=== PATIENT | female | born 1930 | race Caucasian/White ===

== ENCOUNTER → 2017-12-02 | Outpatient (CLI) | payer MEDICARE, OTHER | END | disposition home or self-care (01) | LOC: RAD 11:09 | DX: M54.9 Dorsalgia, unspecified (principal); G95.19 Other vascular myelopathies | CPT/HCPCS: 72100 ==

== ENCOUNTER 2018-03-03 09:45 | Inpatient (IN) | payer MEDICARE, OTHER ==
[2018-03-03] MEDS: ONDANSETRON 4 MG INJ IV (12:21)
[2018-03-03] MEDS: HYDROmorphONE 1 MG/5 ML IV SYRINGE IV (12:22)
[2018-03-03 12:32] LABS: ADD MAN DIFF? NO
[2018-03-03 12:36] LABS: BASOPHIL # 0.1 10^3/ul (0.0-0.1); BASOPHILS % 0.6 % (0.0-2.0); EOSINOPHILS # 0.1 10^3/ul (0.0-0.5); EOSINOPHILS % 0.9 % (0.0-7.0); HEMOGLOBIN 13.1 g/dl (12.0-16.0); LYMPHOCYTES # 1.7 10^3/ul (0.8-2.9); LYMPHOCYTES % 14.8 % (15.0-51.0); MEAN CORPUSCULAR HEMOGLOBIN 26.5 pg (29.0-33.0); MEAN PLATELET VOLUME 10.2 fl (7.4-10.4); MONOCYTE # 0.4 10^3/ul (0.3-0.9); MONOCYTES % 3.7 % (0.0-11.0); NEUTROPHIL # 9.2 10^3/ul (1.6-7.5); NEUTROPHILS % 79.3 % (39.0-77.0); PLATELET COUNT 222 10^3/UL (140-415); RED BLOOD COUNT 4.94 10^6/ul (4.20-5.40); RED CELL DISTRIBUTION WIDTH 14.9 % (11.5-14.5)
[2018-03-03 12:36] LABS: WHITE BLOOD COUNT 11.6 10^3/ul (4.8-10.8)
[2018-03-03 12:57] LABS: ALANINE AMINOTRANSFERASE 34 IU/L (13-69); ALBUMIN 3.6 g/dl (3.3-4.9); ALKALINE PHOSPHATASE 126 IU/L (42-121); ANION GAP 18 (8-16); ASPARTATE AMINO TRANSFERASE 42 IU/L (15-46); BILIRUBIN,INDIRECT 0.6 mg/dl (0-1.1); BILIRUBIN,TOTAL 0.6 mg/dl (0.2-1.3); BLOOD UREA NITROGEN 15 mg/dl (7-20); CARBON DIOXIDE 30 mmol/L (21-31); CHLORIDE 104 mmol/L (97-110); CREATININE 0.85 mg/dl (0.44-1.00); GLUCOSE 174 mg/dl (70-220); INR 1.04; PARTIAL THROMBOPLASTIN TIME 30.8 Sec (25.0-35.0); POTASSIUM 4.3 mmol/L (3.5-5.1); PROTIME 13.7 Sec (11.9-14.9); PT RATIO 1.1; SODIUM 148 mmol/L (135-144)
[2018-03-03] MEDS ORDERED: ONDANSETRON 4 MG INJ IV (13:30)
[2018-03-03] MEDS ORDERED: ACETAMINOPHEN 325 MG TAB PO (13:30)
[2018-03-03] MEDS ORDERED: ALPRAZOLAM 0.25 MG TAB PO (14:00)
[2018-03-03] MEDS ORDERED: NITROGLYCERIN (SL) 0.4 MG TAB SL (14:00)
[2018-03-03] MEDS: [UNRECOGNIZED DRUG - REMARK] XX (16:13)
[2018-03-03] MEDS: CEFEPIME 1GM/50 ML (PMX) 50 ML IVPB (16:14)
[2018-03-03 16:52] LABS: ADD UMIC YES; UR ASCORBIC ACID NEGATIVE (NEGATIVE); UR BACTERIA FEW /HPF (NONE SEEN); UR BILIRUBIN (Dip) NEGATIVE (NEGATIVE); UR BLOOD (Dip) NEGATIVE (NEGATIVE); UR CLARITY SLIGHTLY CLOUDY (CLEAR); UR COLOR YELLOW (YELLOW); UR GLUCOSE (Dip) NEGATIVE (NEGATIVE); UR KETONES (Dip) NEGATIVE (NEGATIVE); UR LEUKOCYTE ESTERASE (Dip) TRACE Leu/ul (NEGATIVE); UR MUCUS FEW /HPF (NONE SEEN); UR NITRITE (Dip) NEGATIVE (NEGATIVE); UR RBC 0 /HPF (0-5); UR SPECIFIC GRAVITY (Dip) 1.014 (1.003-1.030); UR TOTAL PROTEIN (Dip) 1+ mg/dl (NEGATIVE); UR UROBILINOGEN (Dip) NEGATIVE (NEGATIVE); UR WBC 17 /HPF (0-5)
[2018-03-03] MEDS: HYDROCODONE/APAP (5/325) TAB PO ×2 (16:57→23:31)
[2018-03-03 17:25] LABS: HEMOGLOBIN A1C 8.2 % (0-5.9)
[2018-03-03] MEDS ORDERED: ENOXAPARIN 30 MG/0.3 ML SYG SC (17:30)
[2018-03-03 17:34] LABS: CREATININE,URINE RANDOM 110.62 mg/dl (20-320)
[2018-03-03 17:34] LABS: SODIUM,URINE RANDOM 53 mmol/L (30-90)
[2018-03-03] MEDS ORDERED: HYDROCODONE/APAP (5/325) TAB PO (18:00)
[2018-03-03] MEDS ORDERED: GLUCOSE GEL 15 GRAM TUBE PO ×2 (18:00)
[2018-03-03] MEDS ORDERED: GLUCOSE GEL 15 GRAM TUBE BUCCAL (18:00)
[2018-03-03] MEDS ORDERED: DEXTROSE 50% 50 ML SYRINGE IV ×2 (18:00)
[2018-03-03] MEDS ORDERED: GLUCAGON 1 MG INJ IM (18:00)
[2018-03-03] MEDS: INSULIN ASPART [NOVOLOG] 3 ML PEN SC ×2 (18:54→20:24)
[2018-03-03] MEDS: LACTULOSE 30ML CUP PO (20:20)
[2018-03-03] MEDS: GABAPENTIN 100 MG CAP PO (20:20)
[2018-03-03] MEDS: POTASSIUM CHLORIDE (SR) 20 MEQ TAB PO (20:20)
[2018-03-03] MEDS: INSULIN GLARGINE [LANtus] 3 ML PEN SC (21:00)
[2018-03-04] MEDS: PANTOPRAZOLE (EC) 40 MG TAB PO (05:08)
[2018-03-04] MEDS: INSULIN ASPART [NOVOLOG] 3 ML PEN SC ×2 (05:08→08:57)
[2018-03-04 05:21] LABS: ADD MAN DIFF? NO
[2018-03-04 05:25] LABS: BASOPHILS % 0.5 % (0.0-2.0); EOSINOPHILS # 0.1 10^3/ul (0.0-0.5); EOSINOPHILS % 2.2 % (0.0-7.0); HEMATOCRIT 33.7 % (37.0-47.0); HEMOGLOBIN 10.6 g/dl (12.0-16.0); MEAN CORPUSCULAR HEMOGLOBIN 26.7 pg (29.0-33.0); MEAN CORPUSCULAR HGB CONC 31.5 g/dl (32.0-37.0); MEAN CORPUSCULAR VOLUME 84.9 fl (82.0-101.0); MEAN PLATELET VOLUME 10.3 fl (7.4-10.4); MONOCYTE # 0.4 10^3/ul (0.3-0.9); MONOCYTES % 6.5 % (0.0-11.0); NEUTROPHIL # 3.4 10^3/ul (1.6-7.5); NEUTROPHILS % 57.5 % (39.0-77.0); PLATELET COUNT 158 10^3/UL (140-415); RED BLOOD COUNT 3.97 10^6/ul (4.20-5.40); RED CELL DISTRIBUTION WIDTH 14.9 % (11.5-14.5)
[2018-03-04 05:49] LABS: ANION GAP 9 (8-16); BLOOD UREA NITROGEN 20 mg/dl (7-20); CALCIUM 9.1 mg/dl (8.4-10.2); CARBON DIOXIDE 30 mmol/L (21-31); CHLORIDE 109 mmol/L (97-110); CREATININE 0.89 mg/dl (0.44-1.00); GLUCOSE 211 mg/dl (70-220); PHOSPHORUS 3.8 mg/dl (2.5-4.9); SODIUM 143 mmol/L (135-144)
[2018-03-04] MEDS ORDERED: NON-FORMULARY/PATIENT OWN MED (Omeprazole* 20 MG) PO (07:00)
[2018-03-04] MEDS: AMLODIPINE 10 MG TAB PO (08:44)
[2018-03-04] MEDS: BENAZEPRIL 10 MG TAB PO (08:45)
[2018-03-04] MEDS: CHOLECALCIFEROL 1,000 UNIT TAB PO (08:46)
[2018-03-04] MEDS: GABAPENTIN 100 MG CAP PO ×3 (08:46→20:27)
[2018-03-04] MEDS: METOLAZONE 2.5 MG TAB PO (08:46)
[2018-03-04] MEDS: DULOXETINE 30 MG CAP DR PO (08:47)
[2018-03-04] MEDS: FUROSEMIDE 40 MG TAB PO (08:47)
[2018-03-04] MEDS: LACTULOSE 30ML CUP PO ×3 (08:47→20:38)
[2018-03-04] MEDS: METHENAMINE 1 GM TAB PO (08:47)
[2018-03-04] MEDS: POTASSIUM CHLORIDE (SR) 20 MEQ TAB PO ×2 (08:47→20:27)
[2018-03-04] MEDS: NEBIVOLOL 5 MG TAB PO (08:50)
[2018-03-04] MEDS: ASPIRIN 81 MG TAB PO (08:57)
[2018-03-04] MEDS ORDERED: NEBIVOLOL 5 MG TAB PO (09:00)
[2018-03-04] MEDS ORDERED: LIRAGLUTIDE 1.8 MG SQ (09:00)
[2018-03-04] MEDS: DEXTROSE 5%-0.45% NACL 1,000 ML IV (09:07)
[2018-03-04] MEDS: LINAGLIPTIN 5 MG TABLET PO (10:30)
[2018-03-04] MEDS ORDERED: ROCURONIUM 50 MG INJ (10:48)
[2018-03-04] MEDS ORDERED: PROPOFOL 20 ML (10:48)
[2018-03-04] MEDS ORDERED: MEPERIDINE 100 MG INJ (10:48)
[2018-03-04] MEDS ORDERED: SUCCINYLCHOLINE CHLORIDE 100 MG/5 ML SYG IV (10:48)
[2018-03-04] MEDS ORDERED: GLYCOPYRROLATE 0.4 MG INJ ×2 (10:48→11:22)
[2018-03-04] MEDS ORDERED: LIDOCAINE 2% (SDV) 5 ML INJ (10:48)
[2018-03-04] MEDS ORDERED: NEOSTIGMINE 3 MG/3 ML SYRINGE ×2 (10:48→11:22)
[2018-03-04] MEDS: CEFAZOLIN 2 GM/50 ML (PMX) 50 ML IVPB (11:07)
[2018-03-04] MEDS: POLYMYXIN/BACITRACIN 1L IRRIG IRR (11:27)
[2018-03-04] MEDS ORDERED: MEPERIDINE 25 MG INJ IV (11:30)
[2018-03-04] MEDS ORDERED: MIDAZOLAM 1 MG/ML 2 ML INJ IV (11:30)
[2018-03-04] MEDS ORDERED: LABETALOL HCL 20MG INJ IV (11:30)
[2018-03-04] MEDS ORDERED: FENTAnyl 50 MCG/ML VIAL IV ×3 (11:30)
[2018-03-04] MEDS ORDERED: OXYCODONE/ACETAMINOPHEN (5/325) TAB PO ×2 (11:30)
[2018-03-04] MEDS ORDERED: hydrALAzine 20 MG INJ IV (11:30)
[2018-03-04] MEDS ORDERED: METOCLOPRAMIDE 10 MG INJ IV (11:30)
[2018-03-04] MEDS ORDERED: EPHEDrine SULFATE 50 MG/5 ML SYG IV (11:30)
[2018-03-04] MEDS ORDERED: HYDROmorphONE (0.2 MG/ML) 10ML SYG IV ×2 (11:30)
[2018-03-04] MEDS ORDERED: ONDANSETRON 4 MG INJ IV (11:30)
[2018-03-04] MEDS ORDERED: DIPHENHYDRAMINE 50 MG INJ IV ×2 (11:30→12:00)
[2018-03-04] MEDS: LUBIPROSTONE 8 MCG CAPSULE PO ×2 (11:30→20:30)
[2018-03-04] MEDS ORDERED: BACITRACIN/POLYMYXIN 28.35 GM OINT TOP (11:41)
[2018-03-04] MEDS ORDERED: CEFAZOLIN 1 GM INJ (11:42)
[2018-03-04] MEDS ORDERED: METOCLOPRAMIDE 10 MG INJ (11:42)
[2018-03-04] MEDS ORDERED: ONDANSETRON 4 MG INJ (11:42)
[2018-03-04] MEDS ORDERED: SUGAMMADEX SODIUM 200 MG/2 ML VIAL IV (11:57)
[2018-03-04] MEDS ORDERED: MAGNESIUM HYDROXIDE 30ML CUP PO (12:00)
[2018-03-04] MEDS ORDERED: NALOXONE (0.4 MG/ML) INJ IV (12:00)
[2018-03-04] MEDS: CEFAZOLIN 1 GM/50 ML (PMX) 50 ML IVPB ×2 (12:00→20:25)
[2018-03-04] MEDS ORDERED: BISACODYL 10 MG SUPP PR (12:00)
[2018-03-04] MEDS ORDERED: BETHANECHOL 25 MG TAB PO (12:00)
[2018-03-04] MEDS ORDERED: oxyCODONE 5 MG TAB PO (12:00)
[2018-03-04] MEDS ORDERED: NA PHOSPHATE/BIPHOS 133 ML ENEMA PR (12:00)
[2018-03-04] MEDS ORDERED: TRIMETHOBENZAMIDE 100 MG/ML VIAL IM (12:00)
[2018-03-04] MEDS ORDERED: SENNA/DOCUSATE NA (8.6MG/50MG) TAB PO (12:00)
[2018-03-04] MEDS: HYDROmorphONE (0.2 MG/ML) 10ML SYG IV ×3 (12:34→13:15)
[2018-03-04] MEDS: ONDANSETRON 4 MG INJ IV ×3 (12:36→23:26)
[2018-03-04] MEDS: DOCUSATE SODIUM 100 MG CAP PO (12:36)
[2018-03-04] MEDS: ASPIRIN (EC) 325 MG TAB PO ×2 (12:36→20:27)
[2018-03-04] MEDS: CALCIUM CARBONATE 1.25 GM TAB PO ×2 (13:00→20:27)
[2018-03-04] MEDS ORDERED: POLYMYXIN/BACITRACIN 1L IRRIG (13:02)
[2018-03-04] MEDS: SOD CHLORIDE 0.9% 1,000 ML IV ×2 (14:03→23:32)
[2018-03-04] MEDS: HYDROCODONE/APAP (5/325) TAB PO ×2 (15:08→23:26)
[2018-03-04] MEDS: CEFEPIME 1GM/50 ML (PMX) 50 ML IVPB (15:52)
[2018-03-04] MEDS ORDERED: INSULIN ASPART [NOVOLOG] 3 ML PEN SC (17:25)
[2018-03-04] MEDS: Insulin NOVOLOG SS MODERATE Algorithm (SS with meals and bedtime) SC ×2 (18:06→20:49)
[2018-03-04] MEDS: TOLTERODINE (SR) 2 MG CAP PO (20:27)
[2018-03-04] MEDS: INSULIN GLARGINE [LANtus] 3 ML PEN SC (20:48)
[2018-03-05] MEDS: ACCUCHECK AT 2AM (Patients on SS coverage) XX (02:46)
[2018-03-05] MEDS: CEFAZOLIN 1 GM/50 ML (PMX) 50 ML IVPB (04:22)
[2018-03-05 05:17] LABS: ADD MAN DIFF? NO
[2018-03-05 05:23] LABS: BASOPHILS % 0.6 % (0.0-2.0); EOSINOPHILS # 0.2 10^3/ul (0.0-0.5); EOSINOPHILS % 3.2 % (0.0-7.0); HEMATOCRIT 29.3 % (37.0-47.0); HEMOGLOBIN 9.4 g/dl (12.0-16.0); LYMPHOCYTES % 31.1 % (15.0-51.0); MEAN CORPUSCULAR HEMOGLOBIN 27.1 pg (29.0-33.0); MEAN CORPUSCULAR HGB CONC 32.1 g/dl (32.0-37.0); MEAN CORPUSCULAR VOLUME 84.4 fl (82.0-101.0); MEAN PLATELET VOLUME 10.2 fl (7.4-10.4); MONOCYTE # 0.5 10^3/ul (0.3-0.9); MONOCYTES % 6.9 % (0.0-11.0); NEUTROPHIL # 3.8 10^3/ul (1.6-7.5); NEUTROPHILS % 57.7 % (39.0-77.0); PLATELET COUNT 143 10^3/UL (140-415); RED BLOOD COUNT 3.47 10^6/ul (4.20-5.40); RED CELL DISTRIBUTION WIDTH 15.5 % (11.5-14.5)
[2018-03-05 05:23] LABS: WHITE BLOOD COUNT 6.5 10^3/ul (4.8-10.8)
[2018-03-05 05:59] LABS: ANION GAP 11 (8-16); BLOOD UREA NITROGEN 21 mg/dl (7-20); CALCIUM 8.4 mg/dl (8.4-10.2); CARBON DIOXIDE 26 mmol/L (21-31); CHLORIDE 109 mmol/L (97-110); CREATININE 0.94 mg/dl (0.44-1.00); GLUCOSE 118 mg/dl (70-220); MAGNESIUM 1.9 mg/dl (1.7-2.5); PHOSPHORUS 3.1 mg/dl (2.5-4.9); POTASSIUM 4.8 mmol/L (3.5-5.1); SODIUM 141 mmol/L (135-144)
[2018-03-05] MEDS: PANTOPRAZOLE (EC) 40 MG TAB PO ×2 (06:00→06:12)
[2018-03-05] MEDS: ONDANSETRON 4 MG INJ IV (06:13)
[2018-03-05 07:35] LABS: ADD UMIC YES; UR ASCORBIC ACID NEGATIVE (NEGATIVE); UR BACTERIA FEW /HPF (NONE SEEN); UR BILIRUBIN (Dip) NEGATIVE (NEGATIVE); UR BLOOD (Dip) 1+ mg/dL (NEGATIVE); UR CLARITY CLEAR (CLEAR); UR COLOR YELLOW (YELLOW); UR GLUCOSE (Dip) NEGATIVE (NEGATIVE); UR KETONES (Dip) NEGATIVE (NEGATIVE); UR LEUKOCYTE ESTERASE (Dip) 1+ Leu/ul (NEGATIVE); UR NITRITE (Dip) NEGATIVE (NEGATIVE); UR RBC 7 /HPF (0-5); UR TOTAL PROTEIN (Dip) 1+ mg/dl (NEGATIVE); UR UROBILINOGEN (Dip) NEGATIVE (NEGATIVE); UR WBC 17 /HPF (0-5)
[2018-03-05] MEDS: Insulin NOVOLOG SS MODERATE Algorithm (SS with meals and bedtime) SC ×4 (07:50→21:48)
[2018-03-05] MEDS: DOCUSATE SODIUM 100 MG CAP PO ×2 (09:05→21:54)
[2018-03-05] MEDS: CELECOXIB 200 MG CAP PO ×2 (09:06→21:50)
[2018-03-05] MEDS: FERROUS FUMARATE (SR) TAB PO ×2 (09:06→21:50)
[2018-03-05] MEDS: LINAGLIPTIN 5 MG TABLET PO (09:06)
[2018-03-05] MEDS: CALCIUM CARBONATE 1.25 GM TAB PO ×3 (09:06→21:49)
[2018-03-05] MEDS: ASPIRIN 81 MG TAB PO (09:06)
[2018-03-05] MEDS: CHOLECALCIFEROL 1,000 UNIT TAB PO (09:07)
[2018-03-05] MEDS: LUBIPROSTONE 8 MCG CAPSULE PO ×2 (09:07→21:54)
[2018-03-05] MEDS: METHENAMINE 1 GM TAB PO (09:08)
[2018-03-05] MEDS: FUROSEMIDE 40 MG TAB PO (09:08)
[2018-03-05] MEDS: METOLAZONE 2.5 MG TAB PO (09:08)
[2018-03-05] MEDS: GABAPENTIN 100 MG CAP PO ×3 (09:09→21:49)
[2018-03-05] MEDS: NEBIVOLOL 5 MG TAB PO (09:09)
[2018-03-05] MEDS: ASPIRIN (EC) 325 MG TAB PO ×2 (09:09→21:50)
[2018-03-05] MEDS: POTASSIUM CHLORIDE (SR) 20 MEQ TAB PO ×2 (09:09→21:51)
[2018-03-05] MEDS: DULOXETINE 30 MG CAP DR PO (09:09)
[2018-03-05] MEDS: LACTULOSE 30ML CUP PO ×4 (09:14→21:55)
[2018-03-05] MEDS ORDERED: CEFTRIAXONE 2 GM/50 ML (PMX) 50 ML IVPB (13:30)
[2018-03-05] MEDS: BENAZEPRIL 10 MG TAB PO (15:19)
[2018-03-05] MEDS: AMLODIPINE 10 MG TAB PO (15:19)
[2018-03-05] MEDS: HYDROCODONE/APAP (5/325) TAB PO (15:22)
[2018-03-05 15:23] LABS: CREATININE, RANDOM URINE 128 mg/dL (20-320); MICROALBUMIN 18.2 mg/dL; MICROALBUMIN/CREATININE RATIO 142 (<30)
[2018-03-05] MEDS ORDERED: LACTULOSE 30ML CUP PO (17:30)
[2018-03-05] MEDS: CEFEPIME 1GM/50 ML (PMX) 50 ML IVPB (18:24)
[2018-03-05] MEDS: SOD CHLORIDE 0.9% 1,000 ML IV (20:43)
[2018-03-05] MEDS: TOLTERODINE (SR) 2 MG CAP PO (21:50)
[2018-03-05] MEDS: INSULIN GLARGINE [LANtus] 3 ML PEN SC (21:53)
[2018-03-06] MEDS: ACCUCHECK AT 2AM (Patients on SS coverage) XX (02:00)
[2018-03-06] MEDS: HYDROCODONE/APAP (5/325) TAB PO ×3 (03:32→15:15)
[2018-03-06] MEDS: PANTOPRAZOLE (EC) 40 MG TAB PO ×2 (06:00→06:09)
[2018-03-06] MEDS: Insulin NOVOLOG SS MODERATE Algorithm (SS with meals and bedtime) SC ×4 (07:50→20:13)
[2018-03-06] MEDS: DOCUSATE SODIUM 100 MG CAP PO ×2 (09:14→20:00)
[2018-03-06] MEDS: FERROUS FUMARATE (SR) TAB PO ×2 (09:14→19:59)
[2018-03-06] MEDS: CELECOXIB 200 MG CAP PO ×2 (09:14→20:00)
[2018-03-06] MEDS: GABAPENTIN 100 MG CAP PO ×3 (09:14→19:59)
[2018-03-06] MEDS: ASPIRIN (EC) 325 MG TAB PO ×2 (09:15→19:59)
[2018-03-06] MEDS: CHOLECALCIFEROL 1,000 UNIT TAB PO (09:15)
[2018-03-06] MEDS: CALCIUM CARBONATE 1.25 GM TAB PO ×3 (09:15→19:59)
[2018-03-06] MEDS: DULOXETINE 30 MG CAP DR PO (09:15)
[2018-03-06] MEDS: AMLODIPINE 10 MG TAB PO (09:16)
[2018-03-06] MEDS: LINAGLIPTIN 5 MG TABLET PO (09:16)
[2018-03-06] MEDS: ASPIRIN 81 MG TAB PO (09:16)
[2018-03-06] MEDS: BENAZEPRIL 10 MG TAB PO (09:17)
[2018-03-06] MEDS: FUROSEMIDE 40 MG TAB PO (09:17)
[2018-03-06] MEDS: NEBIVOLOL 5 MG TAB PO (09:17)
[2018-03-06] MEDS: METOLAZONE 2.5 MG TAB PO (09:18)
[2018-03-06] MEDS: METHENAMINE 1 GM TAB PO (09:18)
[2018-03-06] MEDS: POTASSIUM CHLORIDE (SR) 20 MEQ TAB PO ×2 (09:22→19:59)
[2018-03-06] MEDS: LACTULOSE 30ML CUP PO ×3 (09:23→20:00)
[2018-03-06] MEDS ORDERED: ENOXAPARIN 40 MG/0.4 ML SYG SC (09:30)
[2018-03-06] MEDS: LUBIPROSTONE 24 MCG CAP PO ×2 (09:56→18:14)
[2018-03-06] MEDS: ENOXAPARIN 30 MG/0.3 ML SYG SC (11:48)
[2018-03-06] MEDS: CEFEPIME 1GM/50 ML (PMX) 50 ML IVPB (15:16)
[2018-03-06] MEDS: TOLTERODINE (SR) 2 MG CAP PO (19:59)
[2018-03-06] MEDS: INSULIN GLARGINE [LANtus] 3 ML PEN SC (20:10)
[2018-03-07] MEDS: ACCUCHECK AT 2AM (Patients on SS coverage) XX (02:00)
[2018-03-07 05:49] LABS: ADD MAN DIFF? NO
[2018-03-07 05:54] LABS: WHITE BLOOD COUNT 7.7 10^3/ul (4.8-10.8)
[2018-03-07 05:54] LABS: BASOPHILS % 0.5 % (0.0-2.0); EOSINOPHILS # 0.2 10^3/ul (0.0-0.5); EOSINOPHILS % 3.1 % (0.0-7.0); HEMOGLOBIN 8.3 g/dl (12.0-16.0); LYMPHOCYTES # 2.1 10^3/ul (0.8-2.9); MEAN CORPUSCULAR HEMOGLOBIN 27.1 pg (29.0-33.0); MEAN CORPUSCULAR HGB CONC 31.9 g/dl (32.0-37.0); MEAN PLATELET VOLUME 10.6 fl (7.4-10.4); MONOCYTE # 0.8 10^3/ul (0.3-0.9); MONOCYTES % 10.9 % (0.0-11.0); NEUTROPHIL # 4.4 10^3/ul (1.6-7.5); NEUTROPHILS % 57.5 % (39.0-77.0); PLATELET COUNT 169 10^3/UL (140-415); RED BLOOD COUNT 3.06 10^6/ul (4.20-5.40); RED CELL DISTRIBUTION WIDTH 15.9 % (11.5-14.5)
[2018-03-07] MEDS: PANTOPRAZOLE (EC) 40 MG TAB PO ×2 (06:56→06:57)
[2018-03-07] MEDS: Insulin NOVOLOG SS MODERATE Algorithm (SS with meals and bedtime) SC ×4 (07:50→21:35)
[2018-03-07 08:59] LABS: ANION GAP 12 (8-16); BLOOD UREA NITROGEN 29 mg/dl (7-20); CALCIUM 8.3 mg/dl (8.4-10.2); CARBON DIOXIDE 23 mmol/L (21-31); CHLORIDE 110 mmol/L (97-110); CREATININE 1.21 mg/dl (0.44-1.00); GLUCOSE 105 mg/dl (70-220); PHOSPHORUS 1.9 mg/dl (2.5-4.9); SODIUM 138 mmol/L (135-144)
[2018-03-07] MEDS: POTASSIUM CHLORIDE (SR) 20 MEQ TAB PO (09:00)
[2018-03-07 09:11] LABS: POTASSIUM 6.9 mmol/L (3.5-5.1)
[2018-03-07] MEDS: CHOLECALCIFEROL 1,000 UNIT TAB PO (09:40)
[2018-03-07] MEDS: METHENAMINE 1 GM TAB PO (09:40)
[2018-03-07] MEDS: AMLODIPINE 10 MG TAB PO (09:40)
[2018-03-07] MEDS: LUBIPROSTONE 24 MCG CAP PO ×2 (09:40→18:08)
[2018-03-07] MEDS: GABAPENTIN 100 MG CAP PO ×3 (09:41→21:19)
[2018-03-07] MEDS: BENAZEPRIL 10 MG TAB PO (09:41)
[2018-03-07] MEDS: FUROSEMIDE 40 MG TAB PO (09:41)
[2018-03-07] MEDS: METOLAZONE 2.5 MG TAB PO (09:41)
[2018-03-07] MEDS: CELECOXIB 200 MG CAP PO ×2 (09:41→21:19)
[2018-03-07] MEDS: DULOXETINE 30 MG CAP DR PO (09:41)
[2018-03-07] MEDS: LACTULOSE 30ML CUP PO ×3 (09:42→21:19)
[2018-03-07] MEDS: ASPIRIN (EC) 325 MG TAB PO ×2 (09:42→21:19)
[2018-03-07] MEDS: NEBIVOLOL 5 MG TAB PO (09:42)
[2018-03-07] MEDS: DOCUSATE SODIUM 100 MG CAP PO ×2 (09:42→21:19)
[2018-03-07] MEDS: CALCIUM CARBONATE 1.25 GM TAB PO ×3 (09:42→21:19)
[2018-03-07] MEDS: FERROUS FUMARATE (SR) TAB PO ×2 (09:43→21:19)
[2018-03-07] MEDS: LINAGLIPTIN 5 MG TABLET PO (09:43)
[2018-03-07] MEDS: ENOXAPARIN 30 MG/0.3 ML SYG SC (09:46)
[2018-03-07 13:41] LABS: ANION GAP 11 (8-16); BLOOD UREA NITROGEN 29 mg/dl (7-20); CALCIUM 8.4 mg/dl (8.4-10.2); CARBON DIOXIDE 23 mmol/L (21-31); CHLORIDE 108 mmol/L (97-110); GLUCOSE 196 mg/dl (70-220); SODIUM 136 mmol/L (135-144)
[2018-03-07] MEDS: NA POLYST SULFON 15 GM/60 ML BTL PO (14:45)
[2018-03-07] MEDS: CEFEPIME 1GM/50 ML (PMX) 50 ML IVPB (14:45)
[2018-03-07] MEDS: FUROSEMIDE 20 MG INJ IV (14:45)
[2018-03-07] MEDS ORDERED: VITAMIN A & D 5 GM OINT PACKET TOP (15:13)
[2018-03-07] MEDS: TOLTERODINE (SR) 2 MG CAP PO (21:19)
[2018-03-07] MEDS: INSULIN GLARGINE [LANtus] 3 ML PEN SC (21:21)
[2018-03-07] MEDS: HYDROCODONE/APAP (5/325) TAB PO (21:35)
[2018-03-08] MEDS: HYDROCODONE/APAP (10/325) TAB PO (01:16)
[2018-03-08] MEDS: ACCUCHECK AT 2AM (Patients on SS coverage) XX (02:00)
[2018-03-08 05:59] LABS: ALANINE AMINOTRANSFERASE 18 IU/L (13-69); ALBUMIN 2.4 g/dl (3.3-4.9); ALBUMIN/GLOBULIN RATIO 0.68; ALKALINE PHOSPHATASE 102 IU/L (42-121); ANION GAP 11 (8-16); ASPARTATE AMINO TRANSFERASE 23 IU/L (15-46); BILIRUBIN,INDIRECT 0.4 mg/dl (0-1.1); BILIRUBIN,TOTAL 0.4 mg/dl (0.2-1.3); BLOOD UREA NITROGEN 29 mg/dl (7-20); CALCIUM 9.1 mg/dl (8.4-10.2); CARBON DIOXIDE 27 mmol/L (21-31); CHLORIDE 110 mmol/L (97-110); CREATININE 1.18 mg/dl (0.44-1.00); GLUCOSE 136 mg/dl (70-220); POTASSIUM 4.1 mmol/L (3.5-5.1); SODIUM 144 mmol/L (135-144); TOTAL PROTEIN 5.9 g/dl (6.1-8.1)
[2018-03-08] MEDS: PANTOPRAZOLE (EC) 40 MG TAB PO (07:05)
[2018-03-08] MEDS: Insulin NOVOLOG SS MODERATE Algorithm (SS with meals and bedtime) SC ×2 (07:50→11:40)
[2018-03-08] MEDS: LUBIPROSTONE 24 MCG CAP PO (07:50)
[2018-03-08] MEDS: NEBIVOLOL 5 MG TAB PO (08:32)
[2018-03-08] MEDS: METOLAZONE 2.5 MG TAB PO (08:32)
[2018-03-08] MEDS: METHENAMINE 1 GM TAB PO (08:32)
[2018-03-08] MEDS: DULOXETINE 30 MG CAP DR PO (08:33)
[2018-03-08] MEDS: CELECOXIB 200 MG CAP PO (08:33)
[2018-03-08] MEDS: FERROUS FUMARATE (SR) TAB PO (08:33)
[2018-03-08] MEDS: FUROSEMIDE 40 MG TAB PO (08:33)
[2018-03-08] MEDS: LINAGLIPTIN 5 MG TABLET PO (08:33)
[2018-03-08] MEDS: CHOLECALCIFEROL 1,000 UNIT TAB PO (08:33)
[2018-03-08] MEDS: GABAPENTIN 100 MG CAP PO ×2 (08:33→12:36)
[2018-03-08] MEDS: CALCIUM CARBONATE 1.25 GM TAB PO ×2 (08:34→12:37)
[2018-03-08] MEDS: AMLODIPINE 10 MG TAB PO (08:34)
[2018-03-08] MEDS: ASPIRIN (EC) 325 MG TAB PO (08:34)
[2018-03-08] MEDS: LACTULOSE 30ML CUP PO ×2 (08:45→12:36)
[2018-03-08] MEDS: ENOXAPARIN 30 MG/0.3 ML SYG SC (08:47)
== END 2018-03-08 17:00 | DRG 481 ==
LOC: MS1 03-04 05:02 → E/R 09:45 → MS1 13:11
PROC: 0QS704Z Reposition Left Upper Femur with Internal Fixation Device, Open Approach (ICD-10-PCS; principal; 2018-03-04 10:30)
DX: S72.142A Displaced intertrochanteric fracture of left femur, initial encounter for closed fracture (principal); N39.0 Urinary tract infection, site not specified; E87.0 Hyperosmolality and hypernatremia; I12.9 Hypertensive chronic kidney disease with stage 1 through stage 4 chronic kidney disease, or unspecified chronic kidney disease; E11.22 Type 2 diabetes mellitus with diabetic chronic kidney disease; N18.9 Chronic kidney disease, unspecified; E66.01 Morbid (severe) obesity due to excess calories; Z68.37 Body mass index [BMI] 37.0-37.9, adult; G62.9 Polyneuropathy, unspecified; E87.5 Hyperkalemia; I87.2 Venous insufficiency (chronic) (peripheral); F03.90 Unspecified dementia, unspecified severity, without behavioral disturbance, psychotic disturbance, mood disturbance, and anxiety; K74.60 Unspecified cirrhosis of liver; E78.5 Hyperlipidemia, unspecified
CPT/HCPCS: 71045; 73500; 73510; 73530; 80048; 80053; 80076; 81001; 81003; 82043; 82962; 83036; 83735; 84100; 84155; 84300; 85025; 85610; 85730; 86850; 86900; 86901; 87086; 93005; 93306; 96365; 96375; 97110; 97162; 97165; 97530; 99285-25

== ENCOUNTER 2018-03-16 13:14 | Inpatient (IN) | payer MEDICARE, OTHER ==
[2018-03-16 14:49] LABS: ADD MAN DIFF? NO
[2018-03-16 14:50] LABS: WHITE BLOOD COUNT 6.1 10^3/ul (4.8-10.8)
[2018-03-16 14:50] LABS: BASOPHIL # 0.1 10^3/ul (0.0-0.1); EOSINOPHILS # 0.2 10^3/ul (0.0-0.5); EOSINOPHILS % 3.8 % (0.0-7.0); HEMATOCRIT 34.3 % (37.0-47.0); HEMOGLOBIN 10.9 g/dl (12.0-16.0); MEAN CORPUSCULAR HEMOGLOBIN 27.8 pg (29.0-33.0); MEAN CORPUSCULAR HGB CONC 31.8 g/dl (32.0-37.0); MEAN CORPUSCULAR VOLUME 87.5 fl (82.0-101.0); MEAN PLATELET VOLUME 9.7 fl (7.4-10.4); MONOCYTE # 0.5 10^3/ul (0.3-0.9); MONOCYTES % 8.5 % (0.0-11.0); NEUTROPHIL # 3.3 10^3/ul (1.6-7.5); PLATELET COUNT 227 10^3/UL (140-415); RED BLOOD COUNT 3.92 10^6/ul (4.20-5.40); RED CELL DISTRIBUTION WIDTH 17.6 % (11.5-14.5)
[2018-03-16 15:08] LABS: LACTIC ACID 1.9 mmol/L (0.5-2.0)
[2018-03-16 15:09] LABS: ALANINE AMINOTRANSFERASE 16 IU/L (13-69); ALBUMIN 3.3 g/dl (3.3-4.9); ALBUMIN/GLOBULIN RATIO 0.76; ALKALINE PHOSPHATASE 135 IU/L (42-121); ANION GAP 12 (8-16); ASPARTATE AMINO TRANSFERASE 27 IU/L (15-46); BILIRUBIN,INDIRECT 0.9 mg/dl (0-1.1); BILIRUBIN,TOTAL 0.9 mg/dl (0.2-1.3); BLOOD UREA NITROGEN 43 mg/dl (7-20); CALCIUM 11.5 mg/dl (8.4-10.2); CARBON DIOXIDE 39 mmol/L (21-31); CHLORIDE 91 mmol/L (97-110); CREATININE 1.03 mg/dl (0.44-1.00); GLUCOSE 196 mg/dl (70-220); POTASSIUM 3.6 mmol/L (3.5-5.1); SODIUM 138 mmol/L (135-144); TOTAL PROTEIN 7.6 g/dl (6.1-8.1)
[2018-03-16 15:21] LABS: TROPONIN-I < 0.012 ng/ml (0.00-0.12)
[2018-03-16 15:22] LABS: INR 0.99; PARTIAL THROMBOPLASTIN TIME 25.8 Sec (25.0-35.0); PROTIME 13.2 Sec (11.9-14.9)
[2018-03-16 15:25] LABS: ADD UMIC YES; UR ASCORBIC ACID NEGATIVE (NEGATIVE); UR BACTERIA MANY /HPF (NONE SEEN); UR BILIRUBIN (Dip) NEGATIVE (NEGATIVE); UR BLOOD (Dip) 1+ mg/dL (NEGATIVE); UR BUDDING YEAST FEW /HPF (NONE SEEN); UR CLARITY CLOUDY (CLEAR); UR COLOR YELLOW (YELLOW); UR GLUCOSE (Dip) NEGATIVE (NEGATIVE); UR HYALINE CAST FEW /HPF (NONE SEEN); UR KETONES (Dip) NEGATIVE (NEGATIVE); UR LEUKOCYTE ESTERASE (Dip) 3+ Leu/ul (NEGATIVE); UR NITRITE (Dip) NEGATIVE (NEGATIVE); UR RBC 8 /HPF (0-5); UR SPECIFIC GRAVITY (Dip) 1.011 (1.003-1.030); UR TOTAL PROTEIN (Dip) NEGATIVE (NEGATIVE); UR UROBILINOGEN (Dip) NEGATIVE (NEGATIVE); UR WBC > 182 /HPF (0-5)
[2018-03-16] MEDS: PIPER-TAZO 3.375 GM IV (PMX) 100 ML IVPB (16:29)
[2018-03-16] MEDS: SOD CHLORIDE 0.9% 500 ML IV (16:29)
[2018-03-16 18:54] LABS: LACTIC ACID 1.7 mmol/L (0.5-2.0)
[2018-03-16] MEDS ORDERED: INSULIN ASPART [NOVOLOG] 3 ML PEN SC (20:30)
[2018-03-16] MEDS ORDERED: HYDROCODONE/APAP (5/325) TAB PO (20:30)
[2018-03-16] MEDS ORDERED: NITROGLYCERIN (SL) 0.4 MG TAB SL (20:30)
[2018-03-16] MEDS ORDERED: BISACODYL 10 MG SUPP PR (20:30)
[2018-03-16] MEDS ORDERED: AMLODIPINE 10 MG TAB PO (20:30)
[2018-03-16] MEDS ORDERED: CHOLECALCIFEROL 1,000 UNIT TAB PO (20:30)
[2018-03-16] MEDS ORDERED: ALPRAZOLAM 0.25 MG TAB PO (20:30)
[2018-03-16] MEDS ORDERED: ASPIRIN 81 MG TAB PO (20:30)
[2018-03-16] MEDS: SOD CHLORIDE 0.9% 1,000 ML IV (20:41)
[2018-03-16] MEDS: INSULIN ASPART [NOVOLOG] 3 ML PEN SC (21:00)
[2018-03-16] MEDS ORDERED: INSULIN DEGLUDEC SQ (21:00)
[2018-03-16] MEDS: LACTULOSE 30ML CUP PO ×2 (21:00)
[2018-03-16] MEDS: CEFTRIAXONE 1 GM/50 ML (PMX) 50 ML IVPB (21:32)
[2018-03-16] MEDS: GABAPENTIN 100 MG CAP PO (21:32)
[2018-03-16] MEDS: CALCIUM/VITAMIN D (500/200) TAB PO (21:33)
[2018-03-16] MEDS: ACETAMINOPHEN 325 MG TAB PO (23:11)
[2018-03-17] MEDS ORDERED: HYDROCODONE/APAP (5/325) TAB PO
[2018-03-17] MEDS: ACCU-CHEK XX (02:00)
[2018-03-17] MEDS: PANTOPRAZOLE (EC) 40 MG TAB PO (06:02)
[2018-03-17 07:09] LABS: ADD MAN DIFF? NO
[2018-03-17 07:12] LABS: WHITE BLOOD COUNT 5.6 10^3/ul (4.8-10.8)
[2018-03-17 07:12] LABS: BASOPHIL # 0.1 10^3/ul (0.0-0.1); BASOPHILS % 0.9 % (0.0-2.0); EOSINOPHILS # 0.3 10^3/ul (0.0-0.5); EOSINOPHILS % 4.4 % (0.0-7.0); HEMATOCRIT 31.1 % (37.0-47.0); HEMOGLOBIN 9.8 g/dl (12.0-16.0); LYMPHOCYTES # 1.8 10^3/ul (0.8-2.9); MEAN CORPUSCULAR HEMOGLOBIN 27.8 pg (29.0-33.0); MEAN CORPUSCULAR HGB CONC 31.5 g/dl (32.0-37.0); MEAN CORPUSCULAR VOLUME 88.1 fl (82.0-101.0); MEAN PLATELET VOLUME 10.1 fl (7.4-10.4); MONOCYTE # 0.5 10^3/ul (0.3-0.9); MONOCYTES % 8.2 % (0.0-11.0); PLATELET COUNT 190 10^3/UL (140-415); RED BLOOD COUNT 3.53 10^6/ul (4.20-5.40); RED CELL DISTRIBUTION WIDTH 17.3 % (11.5-14.5)
[2018-03-17 07:37] LABS: ANION GAP 13 (8-16); BLOOD UREA NITROGEN 40 mg/dl (7-20); CARBON DIOXIDE 36 mmol/L (21-31); CHLORIDE 95 mmol/L (97-110); GLUCOSE 165 mg/dl (70-220); POTASSIUM 3.4 mmol/L (3.5-5.1); SODIUM 141 mmol/L (135-144)
[2018-03-17] MEDS: LACTULOSE 30ML CUP PO ×3 (08:27→20:43)
[2018-03-17] MEDS: METOLAZONE 2.5 MG TAB PO (08:28)
[2018-03-17] MEDS: FUROSEMIDE 40 MG TAB PO (08:28)
[2018-03-17] MEDS: METHENAMINE 1 GM TAB PO (08:28)
[2018-03-17] MEDS: DULOXETINE 30 MG CAP DR PO (08:28)
[2018-03-17] MEDS: NEBIVOLOL 5 MG TAB PO (08:29)
[2018-03-17] MEDS: ASPIRIN 81 MG TAB PO (08:29)
[2018-03-17] MEDS: AMLODIPINE 10 MG TAB PO (08:29)
[2018-03-17] MEDS: GABAPENTIN 100 MG CAP PO ×3 (08:29→20:43)
[2018-03-17] MEDS: CALCIUM/VITAMIN D (500/200) TAB PO ×3 (08:29→20:44)
[2018-03-17] MEDS: CHOLECALCIFEROL 1,000 UNIT TAB PO (08:31)
[2018-03-17] MEDS: INSULIN ASPART [NOVOLOG] 3 ML PEN SC ×4 (08:35→20:47)
[2018-03-17] MEDS ORDERED: LIRAGLUTIDE 1.8 MG SQ (09:00)
[2018-03-17] MEDS ORDERED: NON-FORMULARY/PATIENT OWN MED (Mirabegron (Myrbetriq) 50 MG) PO (09:00)
[2018-03-17] MEDS ORDERED: NON-FORMULARY/PATIENT OWN MED (Naloxegol Oxalate (Movantik) 25 MG) PO (09:00)
[2018-03-17] MEDS: INSULIN DEGLUDEC XX ×2 (10:00→14:58)
[2018-03-17] MEDS: [UNRECOGNIZED DRUG - OTHER] XX ×2 (10:00→14:58)
[2018-03-17] MEDS: POTASSIUM CHLORIDE (SR) 20 MEQ TAB PO (10:48)
[2018-03-17] MEDS: [UNRECOGNIZED DRUG - REMARK] XX ×2 (12:30→20:30)
[2018-03-17] MEDS: CEFEPIME 1GM/50 ML (PMX) 50 ML IVPB (20:43)
[2018-03-18] MEDS: [UNRECOGNIZED DRUG - OTHER] XX ×3 (02:00→17:03)
[2018-03-18] MEDS: ACCU-CHEK XX (02:00)
[2018-03-18] MEDS: INSULIN DEGLUDEC XX ×3 (02:00→17:03)
[2018-03-18] MEDS: [UNRECOGNIZED DRUG - REMARK] XX ×3 (02:16→20:29)
[2018-03-18 05:50] LABS: ADD MAN DIFF? NO
[2018-03-18 05:53] LABS: BASOPHIL # 0.1 10^3/ul (0.0-0.1); EOSINOPHILS # 0.3 10^3/ul (0.0-0.5); EOSINOPHILS % 4.7 % (0.0-7.0); HEMATOCRIT 31.8 % (37.0-47.0); LYMPHOCYTES % 34.3 % (15.0-51.0); MEAN CORPUSCULAR HEMOGLOBIN 27.4 pg (29.0-33.0); MEAN CORPUSCULAR HGB CONC 31.4 g/dl (32.0-37.0); MEAN CORPUSCULAR VOLUME 87.1 fl (82.0-101.0); MEAN PLATELET VOLUME 10.1 fl (7.4-10.4); MONOCYTE # 0.5 10^3/ul (0.3-0.9); NEUTROPHILS % 51.5 % (39.0-77.0); PLATELET COUNT 194 10^3/UL (140-415); RED BLOOD COUNT 3.65 10^6/ul (4.20-5.40); RED CELL DISTRIBUTION WIDTH 17.4 % (11.5-14.5)
[2018-03-18 05:53] LABS: WHITE BLOOD COUNT 5.7 10^3/ul (4.8-10.8)
[2018-03-18] MEDS: PANTOPRAZOLE (EC) 40 MG TAB PO (06:23)
[2018-03-18 06:27] LABS: ANION GAP 10 (8-16); BLOOD UREA NITROGEN 32 mg/dl (7-20); CALCIUM 11.3 mg/dl (8.4-10.2); CARBON DIOXIDE 38 mmol/L (21-31); CHLORIDE 99 mmol/L (97-110); CREATININE 0.97 mg/dl (0.44-1.00); GLUCOSE 205 mg/dl (70-220); MAGNESIUM 1.3 mg/dl (1.7-2.5); PHOSPHORUS 2.7 mg/dl (2.5-4.9); POTASSIUM 3.5 mmol/L (3.5-5.1); SODIUM 143 mmol/L (135-144)
[2018-03-18] MEDS: DULOXETINE 30 MG CAP DR PO (08:47)
[2018-03-18] MEDS: GABAPENTIN 100 MG CAP PO ×3 (08:47→20:19)
[2018-03-18] MEDS: CHOLECALCIFEROL 1,000 UNIT TAB PO (08:48)
[2018-03-18] MEDS: AMLODIPINE 10 MG TAB PO (08:48)
[2018-03-18] MEDS: METOLAZONE 2.5 MG TAB PO (08:48)
[2018-03-18] MEDS: CALCIUM/VITAMIN D (500/200) TAB PO ×3 (08:48→20:19)
[2018-03-18] MEDS: ASPIRIN 81 MG TAB PO (08:48)
[2018-03-18] MEDS: METHENAMINE 1 GM TAB PO (08:49)
[2018-03-18] MEDS: LACTULOSE 30ML CUP PO ×3 (08:49→20:20)
[2018-03-18] MEDS: NEBIVOLOL 5 MG TAB PO (08:49)
[2018-03-18] MEDS: FUROSEMIDE 40 MG TAB PO (08:49)
[2018-03-18] MEDS: INSULIN ASPART [NOVOLOG] 3 ML PEN SC ×4 (08:51→20:28)
[2018-03-18] MEDS: LINAGLIPTIN 5 MG TABLET PO (10:16)
[2018-03-18] MEDS: INSULIN GLARGINE [LANtus] 3 ML PEN SC (12:20)
[2018-03-18] MEDS: MAGNESIUM SULFATE 2 GM/50 ML 50 ML IVPB (12:21)
[2018-03-18] MEDS: CEFEPIME 1GM/50 ML (PMX) 50 ML IVPB (20:29)
[2018-03-19] MEDS: [UNRECOGNIZED DRUG - OTHER] XX ×2 (01:34→09:05)
[2018-03-19] MEDS: INSULIN DEGLUDEC XX ×2 (01:34→09:04)
[2018-03-19] MEDS: ACCU-CHEK XX (01:34)
[2018-03-19] MEDS: [UNRECOGNIZED DRUG - REMARK] XX ×2 (04:30→11:34)
[2018-03-19] MEDS: PANTOPRAZOLE (EC) 40 MG TAB PO (05:48)
[2018-03-19 06:34] LABS: ADD MAN DIFF? NO
[2018-03-19 06:38] LABS: WHITE BLOOD COUNT 6.3 10^3/ul (4.8-10.8)
[2018-03-19 06:38] LABS: BASOPHILS % 0.6 % (0.0-2.0); EOSINOPHILS # 0.3 10^3/ul (0.0-0.5); EOSINOPHILS % 5.4 % (0.0-7.0); HEMATOCRIT 32.1 % (37.0-47.0); HEMOGLOBIN 10.4 g/dl (12.0-16.0); LYMPHOCYTES # 2.4 10^3/ul (0.8-2.9); LYMPHOCYTES % 37.5 % (15.0-51.0); MEAN CORPUSCULAR HEMOGLOBIN 27.7 pg (29.0-33.0); MEAN CORPUSCULAR HGB CONC 32.4 g/dl (32.0-37.0); MEAN CORPUSCULAR VOLUME 85.6 fl (82.0-101.0); MEAN PLATELET VOLUME 10.3 fl (7.4-10.4); MONOCYTE # 0.5 10^3/ul (0.3-0.9); MONOCYTES % 8.1 % (0.0-11.0); NEUTROPHILS % 47.9 % (39.0-77.0); PLATELET COUNT 194 10^3/UL (140-415); RED BLOOD COUNT 3.75 10^6/ul (4.20-5.40); RED CELL DISTRIBUTION WIDTH 17.3 % (11.5-14.5)
[2018-03-19 07:01] LABS: ANION GAP 12 (8-16); BLOOD UREA NITROGEN 30 mg/dl (7-20); CALCIUM 11.2 mg/dl (8.4-10.2); CARBON DIOXIDE 36 mmol/L (21-31); CHLORIDE 94 mmol/L (97-110); CREATININE 0.94 mg/dl (0.44-1.00); GLUCOSE 190 mg/dl (70-220); MAGNESIUM 1.6 mg/dl (1.7-2.5); POTASSIUM 3.4 mmol/L (3.5-5.1); SODIUM 139 mmol/L (135-144)
[2018-03-19] MEDS: INSULIN GLARGINE [LANtus] 3 ML PEN SC (08:29)
[2018-03-19] MEDS: INSULIN ASPART [NOVOLOG] 3 ML PEN SC ×4 (08:30→20:43)
[2018-03-19] MEDS: GABAPENTIN 100 MG CAP PO ×3 (08:31→20:38)
[2018-03-19] MEDS: LINAGLIPTIN 5 MG TABLET PO (08:31)
[2018-03-19] MEDS: DULOXETINE 30 MG CAP DR PO (08:31)
[2018-03-19] MEDS: CALCIUM/VITAMIN D (500/200) TAB PO ×3 (08:31→20:38)
[2018-03-19] MEDS: METHENAMINE 1 GM TAB PO (08:31)
[2018-03-19] MEDS: CHOLECALCIFEROL 1,000 UNIT TAB PO (08:31)
[2018-03-19] MEDS: LACTULOSE 30ML CUP PO ×3 (08:31→20:38)
[2018-03-19] MEDS: ASPIRIN 81 MG TAB PO (08:31)
[2018-03-19] MEDS: METOLAZONE 2.5 MG TAB PO (08:32)
[2018-03-19] MEDS: AMLODIPINE 10 MG TAB PO (08:32)
[2018-03-19] MEDS: FUROSEMIDE 40 MG TAB PO (08:32)
[2018-03-19] MEDS: NEBIVOLOL 5 MG TAB PO (08:32)
[2018-03-19] MEDS ORDERED: DEXTROSE 50% 50 ML SYRINGE IV ×2 (09:30)
[2018-03-19] MEDS ORDERED: GLUCOSE GEL 15 GRAM TUBE BUCCAL (09:30)
[2018-03-19] MEDS ORDERED: GLUCAGON 1 MG INJ IM (09:30)
[2018-03-19] MEDS ORDERED: GLUCOSE GEL 15 GRAM TUBE PO ×2 (09:30)
[2018-03-19] MEDS: POTASSIUM CHLORIDE (SR) 20 MEQ TAB PO (09:33)
[2018-03-19] MEDS: MAGNESIUM SULFATE 2 GM/50 ML 50 ML IVPB (12:19)
[2018-03-19] MEDS: MIRABEGRON 50MG PO ×2 (13:43→15:26)
[2018-03-19] MEDS: MOVANTIK PO ×2 (13:43→15:27)
[2018-03-19] MEDS: VICTOZA 18 MG/3 ML PEN SC (14:30)
[2018-03-19] MEDS: ERTAPENEM SODIUM 1 GM in SOD CHLORIDE 0.9% 100 ML IVPB (14:33)
[2018-03-19 21:02] LABS: PTH CALCIUM 10.9 mg/dL (8.6-10.4)
[2018-03-20] MEDS: ACCU-CHEK XX (01:14)
[2018-03-20 05:50] LABS: WHITE BLOOD COUNT 6.8 10^3/ul (4.8-10.8)
[2018-03-20 05:50] LABS: ADD MAN DIFF? NO; BASOPHILS % 0.6 % (0.0-2.0); EOSINOPHILS # 0.3 10^3/ul (0.0-0.5); EOSINOPHILS % 4.6 % (0.0-7.0); HEMATOCRIT 30.5 % (37.0-47.0); HEMOGLOBIN 10.1 g/dl (12.0-16.0); LYMPHOCYTES # 2.1 10^3/ul (0.8-2.9); LYMPHOCYTES % 31.3 % (15.0-51.0); MEAN CORPUSCULAR HEMOGLOBIN 28.1 pg (29.0-33.0); MEAN CORPUSCULAR HGB CONC 33.1 g/dl (32.0-37.0); MEAN CORPUSCULAR VOLUME 84.7 fl (82.0-101.0); MEAN PLATELET VOLUME 10.3 fl (7.4-10.4); MONOCYTE # 0.6 10^3/ul (0.3-0.9); MONOCYTES % 8.1 % (0.0-11.0); NEUTROPHIL # 3.7 10^3/ul (1.6-7.5); NEUTROPHILS % 55.1 % (39.0-77.0); PLATELET COUNT 210 10^3/UL (140-415); RED CELL DISTRIBUTION WIDTH 17.4 % (11.5-14.5)
[2018-03-20] MEDS: PANTOPRAZOLE (EC) 40 MG TAB PO (05:57)
[2018-03-20 06:24] LABS: ANION GAP 7 (8-16); BLOOD UREA NITROGEN 30 mg/dl (7-20); CALCIUM 10.9 mg/dl (8.4-10.2); CARBON DIOXIDE 35 mmol/L (21-31); CHLORIDE 96 mmol/L (97-110); CREATININE 0.89 mg/dl (0.44-1.00); GLUCOSE 158 mg/dl (70-220); MAGNESIUM 1.8 mg/dl (1.7-2.5); PHOSPHORUS 3.1 mg/dl (2.5-4.9); POTASSIUM 3.7 mmol/L (3.5-5.1); SODIUM 134 mmol/L (135-144)
[2018-03-20 06:47] LABS: PTH INTACT 8 pg/mL (14-64)
[2018-03-20] MEDS: INSULIN GLARGINE [LANtus] 3 ML PEN SC (08:48)
[2018-03-20] MEDS: INSULIN ASPART [NOVOLOG] 3 ML PEN SC ×2 (08:49→12:21)
[2018-03-20] MEDS: FUROSEMIDE 40 MG TAB PO (08:57)
[2018-03-20] MEDS: ASPIRIN 81 MG TAB PO (08:57)
[2018-03-20] MEDS: LACTULOSE 30ML CUP PO ×2 (08:57→12:29)
[2018-03-20] MEDS: LINAGLIPTIN 5 MG TABLET PO (08:58)
[2018-03-20] MEDS: CALCIUM/VITAMIN D (500/200) TAB PO ×2 (08:58→12:29)
[2018-03-20] MEDS: METHENAMINE 1 GM TAB PO (08:58)
[2018-03-20] MEDS: GABAPENTIN 100 MG CAP PO ×2 (08:58→12:30)
[2018-03-20] MEDS: POTASSIUM CHLORIDE (SR) 20 MEQ TAB PO (08:58)
[2018-03-20] MEDS: DULOXETINE 30 MG CAP DR PO (08:58)
[2018-03-20] MEDS: NEBIVOLOL 5 MG TAB PO (08:58)
[2018-03-20] MEDS: AMLODIPINE 10 MG TAB PO (08:58)
[2018-03-20] MEDS: MIRABEGRON 50MG PO (08:59)
[2018-03-20] MEDS: MOVANTIK PO (08:59)
[2018-03-20] MEDS: VICTOZA 18 MG/3 ML PEN SC (09:48)
[2018-03-20] MEDS: CHOLECALCIFEROL 1,000 UNIT TAB PO (09:54)
[2018-03-20] MEDS: ERTAPENEM SODIUM 1 GM in SOD CHLORIDE 0.9% 100 ML IVPB (13:49)
== END 2018-03-20 15:00 | disposition home or self-care (01) | DRG 871 ==
LOC: E/R 13:14 → PP2 17:29
PROC: 4A00X4Z Measurement of Central Nervous Electrical Activity, External Approach (ICD-10-PCS; principal; 2018-03-17)
DX: A41.9 Sepsis, unspecified organism (principal); G92 Toxic encephalopathy; N39.0 Urinary tract infection, site not specified; I10 Essential (primary) hypertension; E11.40 Type 2 diabetes mellitus with diabetic neuropathy, unspecified; K21.9 Gastro-esophageal reflux disease without esophagitis; F32.9 Major depressive disorder, single episode, unspecified; E66.01 Morbid (severe) obesity due to excess calories; G25.0 Essential tremor; I87.2 Venous insufficiency (chronic) (peripheral); E87.6 Hypokalemia; E83.42 Hypomagnesemia; E86.0 Dehydration; E83.52 Hypercalcemia; Z79.4 Long term (current) use of insulin; Z79.82 Long term (current) use of aspirin; Z96.642 Presence of left artificial hip joint
CPT/HCPCS: 36415; 70450; 71045; 80048; 80053; 81001; 82306; 82962; 83605; 83735; 83970; 84100; 84484; 85025; 85610; 85730; 87040; 87045; 87081; 87086; 92526; 92610; 93005; 95819; 96365; 97162; 99285-25

== ENCOUNTER 2018-07-08 20:25 | Inpatient (IN) | payer MEDICARE, OTHER ==
[2018-07-08 23:57] LABS: ADD MAN DIFF? NO
[2018-07-08 23:59] LABS: WHITE BLOOD COUNT 6.5 10^3/ul (4.8-10.8)
[2018-07-08 23:59] LABS: BASOPHIL # 0.1 10^3/ul (0.0-0.1); BASOPHILS % 0.9 % (0.0-2.0); EOSINOPHILS # 0.2 10^3/ul (0.0-0.5); EOSINOPHILS % 3.5 % (0.0-7.0); HEMATOCRIT 33.3 % (37.0-47.0); HEMOGLOBIN 10.3 g/dl (12.0-16.0); LYMPHOCYTES % 30.2 % (15.0-51.0); MEAN CORPUSCULAR HEMOGLOBIN 24.9 pg (29.0-33.0); MEAN CORPUSCULAR HGB CONC 30.9 g/dl (32.0-37.0); MEAN CORPUSCULAR VOLUME 80.6 fl (82.0-101.0); MEAN PLATELET VOLUME 10.3 fl (7.4-10.4); MONOCYTE # 0.6 10^3/ul (0.3-0.9); MONOCYTES % 8.8 % (0.0-11.0); NEUTROPHIL # 3.7 10^3/ul (1.6-7.5); NEUTROPHILS % 56.3 % (39.0-77.0); PLATELET COUNT 204 10^3/UL (140-415); RED BLOOD COUNT 4.13 10^6/ul (4.20-5.40)
[2018-07-09 00:21] LABS: ALANINE AMINOTRANSFERASE 26 IU/L (13-69); ALBUMIN/GLOBULIN RATIO 0.69; ALKALINE PHOSPHATASE 139 IU/L (42-121); ANION GAP 11 (8-16); ASPARTATE AMINO TRANSFERASE 42 IU/L (15-46); BILIRUBIN,INDIRECT 0.5 mg/dl (0-1.1); BILIRUBIN,TOTAL 0.5 mg/dl (0.2-1.3); BLOOD UREA NITROGEN 18 mg/dl (7-20); CALCIUM 9.3 mg/dl (8.4-10.2); CARBON DIOXIDE 26 mmol/L (21-31); CHLORIDE 107 mmol/L (97-110); CREATININE 0.88 mg/dl (0.44-1.00); GLUCOSE 179 mg/dl (70-220); LIPASE 78 U/L (23-300); POTASSIUM 4.6 mmol/L (3.5-5.1); SODIUM 139 mmol/L (135-144); TOTAL PROTEIN 7.3 g/dl (6.1-8.1)
[2018-07-09 00:32] LABS: B-TYPE NATRIURETIC PEPTIDE 2150 PG/ML (0-450); TROPONIN-I < 0.012 ng/ml (0.000-0.120)
[2018-07-09] MEDS ORDERED: GLUCOSE GEL 15 GRAM TUBE BUCCAL (02:00)
[2018-07-09] MEDS ORDERED: GLUCAGON 1 MG INJ IM (02:00)
[2018-07-09] MEDS: ACCU-CHEK XX (02:00)
[2018-07-09] MEDS ORDERED: GLUCOSE GEL 15 GRAM TUBE PO ×2 (02:00)
[2018-07-09] MEDS ORDERED: DEXTROSE 50% 50 ML SYRINGE IV ×2 (02:00)
[2018-07-09] MEDS ORDERED: ZOLPIDEM 5 MG TAB PO (02:00)
[2018-07-09] MEDS ORDERED: NON-FORMULARY/PATIENT OWN MED (Hydrocodone/Acetaminophen (Norco 5-325 Tablet) 1 EACH) PO (06:00)
[2018-07-09] MEDS: PANTOPRAZOLE (EC) 40 MG TAB PO (06:39)
[2018-07-09] MEDS: FUROSEMIDE 40 MG TAB PO (06:39)
[2018-07-09 06:43] LABS: CREATINE KINASE 25 IU/L (23-200)
[2018-07-09 06:53] LABS: CK INDEX 2.8; CK-MB 0.71 ng/ml (0.0-2.4); TROPONIN-I 0.016 ng/ml (0.000-0.120)
[2018-07-09] MEDS ORDERED: NON-FORMULARY/PATIENT OWN MED (Omeprazole* 20 MG) PO (07:00)
[2018-07-09] MEDS: INSULIN ASPART [NOVOLOG] 3 ML PEN SC ×4 (07:32→20:45)
[2018-07-09] MEDS ORDERED: HYDROCODONE/APAP (5/325) TAB PO (08:30)
[2018-07-09] MEDS: FUROSEMIDE 20 MG INJ IV ×2 (08:55→17:35)
[2018-07-09] MEDS: METHENAMINE 1 GM TAB PO (08:56)
[2018-07-09] MEDS: AMLODIPINE 10 MG TAB PO (08:56)
[2018-07-09] MEDS: GABAPENTIN 100 MG CAP PO ×3 (08:56→20:41)
[2018-07-09] MEDS: DULOXETINE 30 MG CAP DR PO (08:56)
[2018-07-09] MEDS: ASPIRIN 81 MG TAB PO (08:56)
[2018-07-09] MEDS: LACTULOSE 30ML CUP PO ×3 (08:56→20:41)
[2018-07-09] MEDS: CHOLECALCIFEROL 1,000 UNIT TAB PO (08:56)
[2018-07-09] MEDS: NEBIVOLOL 5 MG TAB PO (08:57)
[2018-07-09] MEDS ORDERED: NON-FORMULARY/PATIENT OWN MED (Mirabegron (Myrbetriq) 50 MG) PO (09:00)
[2018-07-09] MEDS ORDERED: LIRAGLUTIDE 1.8 MG SQ (09:00)
[2018-07-09] MEDS: ENOXAPARIN 40 MG/0.4 ML SYG SC (09:10)
[2018-07-09 10:04] LABS: ALANINE AMINOTRANSFERASE 22 IU/L (13-69); ALBUMIN 2.6 g/dl (3.3-4.9); ALBUMIN/GLOBULIN RATIO 0.74; ALKALINE PHOSPHATASE 115 IU/L (42-121); ANION GAP 13 (8-16); ASPARTATE AMINO TRANSFERASE 34 IU/L (15-46); BILIRUBIN,INDIRECT 0.4 mg/dl (0-1.1); BILIRUBIN,TOTAL 0.4 mg/dl (0.2-1.3); BLOOD UREA NITROGEN 18 mg/dl (7-20); CARBON DIOXIDE 27 mmol/L (21-31); CHLORIDE 107 mmol/L (97-110); CREATININE 0.85 mg/dl (0.44-1.00); GLUCOSE 139 mg/dl (70-220); POTASSIUM 4.3 mmol/L (3.5-5.1); SODIUM 143 mmol/L (135-144); TOTAL PROTEIN 6.1 g/dl (6.1-8.1)
[2018-07-09 10:06] LABS: ADD UMIC YES; UR ASCORBIC ACID NEGATIVE (NEGATIVE); UR BILIRUBIN (Dip) NEGATIVE (NEGATIVE); UR BLOOD (Dip) 1+ mg/dL (NEGATIVE); UR CLARITY CLEAR (CLEAR); UR COLOR STRAW (YELLOW); UR GLUCOSE (Dip) NEGATIVE (NEGATIVE); UR KETONES (Dip) NEGATIVE (NEGATIVE); UR LEUKOCYTE ESTERASE (Dip) NEGATIVE Leu/ul (NEGATIVE); UR MUCUS FEW /HPF (NONE SEEN); UR NITRITE (Dip) NEGATIVE (NEGATIVE); UR RBC 4 /HPF (0-5); UR SPECIFIC GRAVITY (Dip) 1.005 (1.003-1.030); UR TOTAL PROTEIN (Dip) NEGATIVE (NEGATIVE); UR UROBILINOGEN (Dip) NEGATIVE (NEGATIVE); UR WBC 1 /HPF (0-5)
[2018-07-09] MEDS: CEFTRIAXONE 1 GM/50 ML (PMX) 50 ML IVPB (10:43)
[2018-07-09] MEDS: LOSARTAN 25 MG TAB PO ×2 (10:43→20:42)
[2018-07-09 10:53] LABS: CREATININE,URINE RANDOM 12.65 mg/dl (20-320)
[2018-07-09 11:03] LABS: SODIUM,URINE RANDOM 115 mmol/L (30-90)
[2018-07-09 11:05] LABS: B-TYPE NATRIURETIC PEPTIDE 2130 PG/ML (0-450)
[2018-07-09 11:45] LABS: CREATINE KINASE 24 IU/L (23-200)
[2018-07-09 12:01] LABS: CK INDEX 3.4; CK-MB 0.81 ng/ml (0.0-2.4); TROPONIN-I < 0.012 ng/ml (0.000-0.120)
[2018-07-09] MEDS ORDERED: CEPHALEXIN 500 MG CAP PO (14:00)
[2018-07-09] MEDS: NYSTATIN 30 GM POWDER BTL TOP (20:45)
[2018-07-09] MEDS ORDERED: INSULIN DEGLUDEC SQ (21:00)
[2018-07-10] MEDS: ACCU-CHEK XX (01:51)
[2018-07-10] MEDS: FUROSEMIDE 20 MG INJ IV (06:08)
[2018-07-10] MEDS: PANTOPRAZOLE (EC) 40 MG TAB PO (06:08)
[2018-07-10 06:53] LABS: ADD MAN DIFF? NO
[2018-07-10 06:57] LABS: BASOPHIL # 0.1 10^3/ul (0.0-0.1); EOSINOPHILS # 0.2 10^3/ul (0.0-0.5); EOSINOPHILS % 4.2 % (0.0-7.0); HEMATOCRIT 30.2 % (37.0-47.0); HEMOGLOBIN 9.3 g/dl (12.0-16.0); LYMPHOCYTES # 1.5 10^3/ul (0.8-2.9); LYMPHOCYTES % 28.5 % (15.0-51.0); MEAN CORPUSCULAR HEMOGLOBIN 25.3 pg (29.0-33.0); MEAN CORPUSCULAR HGB CONC 30.8 g/dl (32.0-37.0); MEAN CORPUSCULAR VOLUME 82.1 fl (82.0-101.0); MEAN PLATELET VOLUME 10.4 fl (7.4-10.4); MONOCYTE # 0.5 10^3/ul (0.3-0.9); MONOCYTES % 9.4 % (0.0-11.0); NEUTROPHIL # 2.9 10^3/ul (1.6-7.5); NEUTROPHILS % 56.5 % (39.0-77.0); PLATELET COUNT 162 10^3/UL (140-415); RED BLOOD COUNT 3.68 10^6/ul (4.20-5.40); RED CELL DISTRIBUTION WIDTH 17.1 % (11.5-14.5)
[2018-07-10 06:57] LABS: WHITE BLOOD COUNT 5.2 10^3/ul (4.8-10.8)
[2018-07-10 07:26] LABS: HEMOGLOBIN A1C 8.4 % (0-5.9)
[2018-07-10 07:29] LABS: CREATINE KINASE < 20 IU/L (23-200)
[2018-07-10 07:38] LABS: B-TYPE NATRIURETIC PEPTIDE 963 PG/ML (0-450)
[2018-07-10 07:40] LABS: CK-MB 0.52 ng/ml (0.0-2.4); TROPONIN-I 0.014 ng/ml (0.000-0.120)
[2018-07-10] MEDS: INSULIN ASPART [NOVOLOG] 3 ML PEN SC ×4 (07:44→21:13)
[2018-07-10 07:47] LABS: ALANINE AMINOTRANSFERASE 24 IU/L (13-69); ALBUMIN 2.4 g/dl (3.3-4.9); ALKALINE PHOSPHATASE 116 IU/L (42-121); ANION GAP 12 (8-16); ASPARTATE AMINO TRANSFERASE 34 IU/L (15-46); BILIRUBIN,INDIRECT 0.4 mg/dl (0-1.1); BILIRUBIN,TOTAL 0.4 mg/dl (0.2-1.3); BLOOD UREA NITROGEN 16 mg/dl (7-20); CALCIUM 8.9 mg/dl (8.4-10.2); CARBON DIOXIDE 28 mmol/L (21-31); CHLORIDE 109 mmol/L (97-110); CREATININE 0.82 mg/dl (0.44-1.00); GLUCOSE 143 mg/dl (70-220); MAGNESIUM 1.5 mg/dl (1.7-2.5); POTASSIUM 3.9 mmol/L (3.5-5.1); SODIUM 145 mmol/L (135-144); TOTAL PROTEIN 5.8 g/dl (6.1-8.1)
[2018-07-10] MEDS: CHOLECALCIFEROL 1,000 UNIT TAB PO (08:22)
[2018-07-10] MEDS: GABAPENTIN 100 MG CAP PO ×3 (08:22→21:04)
[2018-07-10] MEDS: METHENAMINE 1 GM TAB PO (08:22)
[2018-07-10] MEDS: DULOXETINE 30 MG CAP DR PO (08:22)
[2018-07-10] MEDS: LACTULOSE 30ML CUP PO ×3 (08:22→21:00)
[2018-07-10] MEDS: ASPIRIN 81 MG TAB PO (08:22)
[2018-07-10] MEDS: NEBIVOLOL 5 MG TAB PO (08:23)
[2018-07-10] MEDS: AMLODIPINE 10 MG TAB PO (08:23)
[2018-07-10] MEDS: NYSTATIN 30 GM POWDER BTL TOP ×2 (08:23→21:06)
[2018-07-10] MEDS: LOSARTAN 25 MG TAB PO ×2 (08:23→21:05)
[2018-07-10] MEDS: ENOXAPARIN 40 MG/0.4 ML SYG SC (08:30)
[2018-07-10] MEDS: CEFTRIAXONE 1 GM/50 ML (PMX) 50 ML IVPB (10:28)
[2018-07-10] MEDS: MAGNESIUM SULFATE 2 GM/50 ML 50 ML IVPB (11:39)
[2018-07-10 15:51] LABS: CREATININE, RANDOM URINE 15 mg/dL (20-320); MICROALBUMIN 1.3 mg/dL; MICROALBUMIN/CREATININE RATIO 87 (<30)
[2018-07-10] MEDS: INSULIN GLARGINE [LANTus] (100 UNITS/ML) SYG SC (21:13)
[2018-07-11] MEDS: ACCU-CHEK XX (02:00)
[2018-07-11] MEDS: PANTOPRAZOLE (EC) 40 MG TAB PO (05:30)
[2018-07-11] MEDS: FUROSEMIDE 40 MG TAB PO (05:31)
[2018-07-11 06:14] LABS: ADD MAN DIFF? NO
[2018-07-11 06:35] LABS: BASOPHIL # 0.1 10^3/ul (0.0-0.1); BASOPHILS % 0.7 % (0.0-2.0); EOSINOPHILS # 0.2 10^3/ul (0.0-0.5); EOSINOPHILS % 2.9 % (0.0-7.0); HEMATOCRIT 31.6 % (37.0-47.0); HEMOGLOBIN 9.9 g/dl (12.0-16.0); LYMPHOCYTES # 1.7 10^3/ul (0.8-2.9); LYMPHOCYTES % 23.7 % (15.0-51.0); MEAN CORPUSCULAR HEMOGLOBIN 25.3 pg (29.0-33.0); MEAN CORPUSCULAR HGB CONC 31.3 g/dl (32.0-37.0); MEAN CORPUSCULAR VOLUME 80.8 fl (82.0-101.0); MEAN PLATELET VOLUME 10.6 fl (7.4-10.4); MONOCYTE # 0.6 10^3/ul (0.3-0.9); MONOCYTES % 8.2 % (0.0-11.0); NEUTROPHIL # 4.7 10^3/ul (1.6-7.5); NEUTROPHILS % 64.2 % (39.0-77.0); PLATELET COUNT 186 10^3/UL (140-415); RED BLOOD COUNT 3.91 10^6/ul (4.20-5.40)
[2018-07-11 06:35] LABS: WHITE BLOOD COUNT 7.3 10^3/ul (4.8-10.8)
[2018-07-11 07:07] LABS: ANION GAP 11 (8-16); BLOOD UREA NITROGEN 17 mg/dl (7-20); CALCIUM 8.7 mg/dl (8.4-10.2); CARBON DIOXIDE 30 mmol/L (21-31); CHLORIDE 102 mmol/L (97-110); GLUCOSE 133 mg/dl (70-220); MAGNESIUM 1.9 mg/dl (1.7-2.5); PHOSPHORUS 3.4 mg/dl (2.5-4.9); SODIUM 139 mmol/L (135-144)
[2018-07-11] MEDS: INSULIN ASPART [NOVOLOG] 3 ML PEN SC ×4 (07:35→20:42)
[2018-07-11] MEDS: LACTULOSE 30ML CUP PO ×3 (08:47→20:42)
[2018-07-11] MEDS: GABAPENTIN 100 MG CAP PO ×3 (08:48→20:39)
[2018-07-11] MEDS: ASPIRIN 81 MG TAB PO (08:48)
[2018-07-11] MEDS: LOSARTAN 25 MG TAB PO ×2 (08:48→20:40)
[2018-07-11] MEDS: CHOLECALCIFEROL 1,000 UNIT TAB PO (08:48)
[2018-07-11] MEDS: DULOXETINE 30 MG CAP DR PO (08:48)
[2018-07-11] MEDS: METHENAMINE 1 GM TAB PO (08:49)
[2018-07-11] MEDS: NYSTATIN 30 GM POWDER BTL TOP ×2 (08:49→20:46)
[2018-07-11] MEDS: NEBIVOLOL 5 MG TAB PO (08:49)
[2018-07-11] MEDS: AMLODIPINE 10 MG TAB PO (08:49)
[2018-07-11] MEDS: ENOXAPARIN 40 MG/0.4 ML SYG SC (08:54)
[2018-07-11] MEDS: BUMETANIDE 1 MG INJ IV ×2 (09:03→17:38)
[2018-07-11] MEDS: ALPRAZOLAM 0.25 MG TAB PO (12:47)
[2018-07-11] MEDS: ONDANSETRON 4 MG INJ IV (20:39)
[2018-07-11] MEDS: INSULIN GLARGINE [LANTus] (100 UNITS/ML) SYG SC (20:41)
[2018-07-12] MEDS: ACCU-CHEK XX ×2 (02:00→23:38)
[2018-07-12] MEDS: BUMETANIDE 1 MG INJ IV ×2 (05:50→17:26)
[2018-07-12] MEDS: PANTOPRAZOLE (EC) 40 MG TAB PO (05:50)
[2018-07-12 06:27] LABS: ANION GAP 11 (8-16); BLOOD UREA NITROGEN 19 mg/dl (7-20); CALCIUM 8.7 mg/dl (8.4-10.2); CARBON DIOXIDE 31 mmol/L (21-31); CHLORIDE 103 mmol/L (97-110); CREATININE 0.91 mg/dl (0.44-1.00); GLUCOSE 73 mg/dl (70-220); MAGNESIUM 1.7 mg/dl (1.7-2.5); PHOSPHORUS 3.5 mg/dl (2.5-4.9); POTASSIUM 3.8 mmol/L (3.5-5.1); SODIUM 141 mmol/L (135-144)
[2018-07-12] MEDS: INSULIN ASPART [NOVOLOG] 3 ML PEN SC ×4 (07:58→20:08)
[2018-07-12] MEDS: CHOLECALCIFEROL 1,000 UNIT TAB PO (08:34)
[2018-07-12] MEDS: LACTULOSE 30ML CUP PO ×3 (08:34→20:32)
[2018-07-12] MEDS: DULOXETINE 30 MG CAP DR PO (08:34)
[2018-07-12] MEDS: ASPIRIN 81 MG TAB PO (08:34)
[2018-07-12] MEDS: METHENAMINE 1 GM TAB PO (08:35)
[2018-07-12] MEDS: GABAPENTIN 100 MG CAP PO ×3 (08:35→20:16)
[2018-07-12] MEDS: AMLODIPINE 10 MG TAB PO (08:35)
[2018-07-12] MEDS: LOSARTAN 25 MG TAB PO ×2 (08:36→20:17)
[2018-07-12] MEDS: NYSTATIN 30 GM POWDER BTL TOP ×2 (08:36→20:08)
[2018-07-12] MEDS: NEBIVOLOL 5 MG TAB PO (08:36)
[2018-07-12] MEDS: ENOXAPARIN 40 MG/0.4 ML SYG SC (09:07)
[2018-07-12] MEDS: ONDANSETRON 4 MG INJ IV (20:16)
[2018-07-12] MEDS: INSULIN GLARGINE [LANTus] (100 UNITS/ML) SYG SC (20:31)
[2018-07-12] MEDS: ACETAMINOPHEN 325 MG TAB PO (21:16)
[2018-07-12] MEDS ORDERED: BUMETANIDE 1 MG INJ IV (22:30)
[2018-07-12] MEDS: BUMETANIDE 2 MG in DEXTROSE 5% 17 ML IV (23:32)
[2018-07-12] MEDS: ALBUTEROL/IPRATROPIUM (NEB) 3 ML AMP HHN (23:40)
[2018-07-13 00:57] LABS: AADO2 Arterial 123.3 mmHg (7.0-24.0); Allen Test ACCEPTAB; Arterial Base Excess 2.8 mmol/L (-3.0-3); Arterial Blood Gas Oxygen Sat 95.5 mmHG (95.0-100.0); Arterial COHb 0.5 % (0.0-3.0); Arterial Fraction of Oxyhgb 94.7 % (93.0-99.0); Arterial HCO3 27.9 mmol/L (22.0-26.0); Arterial MetHb 0.3 % (0.0-1.5); Arterial Total Hemglobin 11.2 g/dl (12.0-18.0); MODE NASAL CANNULA; Site Left Radial
[2018-07-13] MEDS: BUMETANIDE 1 MG INJ IV ×2 (05:18→17:14)
[2018-07-13] MEDS: PANTOPRAZOLE (EC) 40 MG TAB PO (05:18)
[2018-07-13 06:47] LABS: B-TYPE NATRIURETIC PEPTIDE 1090 PG/ML (0-450)
[2018-07-13 07:16] LABS: ANION GAP 8 (8-16); BLOOD UREA NITROGEN 23 mg/dl (7-20); CALCIUM 8.4 mg/dl (8.4-10.2); CARBON DIOXIDE 33 mmol/L (21-31); CHLORIDE 102 mmol/L (97-110); CREATININE 0.94 mg/dl (0.44-1.00); GLUCOSE 159 mg/dl (70-220); MAGNESIUM 1.7 mg/dl (1.7-2.5); POTASSIUM 3.8 mmol/L (3.5-5.1); SODIUM 139 mmol/L (135-144)
[2018-07-13] MEDS: CHOLECALCIFEROL 1,000 UNIT TAB PO (08:08)
[2018-07-13] MEDS: ASPIRIN 81 MG TAB PO (08:08)
[2018-07-13] MEDS: METHENAMINE 1 GM TAB PO (08:08)
[2018-07-13] MEDS: DULOXETINE 30 MG CAP DR PO (08:09)
[2018-07-13] MEDS: LOSARTAN 25 MG TAB PO ×2 (08:09→20:24)
[2018-07-13] MEDS: AMLODIPINE 10 MG TAB PO (08:09)
[2018-07-13] MEDS: GABAPENTIN 100 MG CAP PO ×3 (08:09→20:24)
[2018-07-13] MEDS: LACTULOSE 30ML CUP PO ×3 (08:10→20:32)
[2018-07-13] MEDS: NYSTATIN 30 GM POWDER BTL TOP ×2 (08:10→20:32)
[2018-07-13] MEDS: NEBIVOLOL 5 MG TAB PO (08:10)
[2018-07-13] MEDS: INSULIN ASPART [NOVOLOG] 3 ML PEN SC ×4 (08:51→20:28)
[2018-07-13] MEDS: ENOXAPARIN 40 MG/0.4 ML SYG SC (08:51)
[2018-07-13] MEDS: METOLAZONE 2.5 MG TAB PO (09:00)
[2018-07-13] MEDS ORDERED: ALBUTEROL/IPRATROPIUM (NEB) 3 ML AMP HHN (09:00)
[2018-07-13] MEDS: INSULIN GLARGINE [LANTus] (100 UNITS/ML) SYG SC (20:28)
[2018-07-13] MEDS: ALBUTEROL/IPRATROPIUM (NEB) 3 ML AMP HHN (21:07)
[2018-07-13] MEDS: FUROSEMIDE 40 MG INJ IV (23:07)
[2018-07-14] MEDS: ACCU-CHEK XX (02:00)
[2018-07-14] MEDS: ALBUTEROL/IPRATROPIUM (NEB) 3 ML AMP HHN ×4 (02:28→19:53)
[2018-07-14] MEDS: PANTOPRAZOLE (EC) 40 MG TAB PO (05:21)
[2018-07-14] MEDS: BUMETANIDE 1 MG INJ IV (05:21)
[2018-07-14 05:39] LABS: ADD MAN DIFF? NO
[2018-07-14 05:40] LABS: BASOPHILS % 0.8 % (0.0-2.0); EOSINOPHILS # 0.3 10^3/ul (0.0-0.5); EOSINOPHILS % 5.9 % (0.0-7.0); HEMATOCRIT 29.3 % (37.0-47.0); HEMOGLOBIN 9.3 g/dl (12.0-16.0); LYMPHOCYTES # 1.8 10^3/ul (0.8-2.9); LYMPHOCYTES % 35.2 % (15.0-51.0); MEAN CORPUSCULAR HEMOGLOBIN 25.3 pg (29.0-33.0); MEAN CORPUSCULAR HGB CONC 31.7 g/dl (32.0-37.0); MEAN CORPUSCULAR VOLUME 79.6 fl (82.0-101.0); MEAN PLATELET VOLUME 10.7 fl (7.4-10.4); MONOCYTE # 0.6 10^3/ul (0.3-0.9); MONOCYTES % 11.9 % (0.0-11.0); NEUTROPHIL # 2.4 10^3/ul (1.6-7.5); PLATELET COUNT 184 10^3/UL (140-415); RED BLOOD COUNT 3.68 10^6/ul (4.20-5.40); RED CELL DISTRIBUTION WIDTH 17.3 % (11.5-14.5)
[2018-07-14 05:40] LABS: WHITE BLOOD COUNT 5.1 10^3/ul (4.8-10.8)
[2018-07-14 06:35] LABS: ANION GAP 7 (8-16); BLOOD UREA NITROGEN 23 mg/dl (7-20); CALCIUM 8.8 mg/dl (8.4-10.2); CARBON DIOXIDE 36 mmol/L (21-31); CHLORIDE 99 mmol/L (97-110); CREATININE 0.93 mg/dl (0.44-1.00); GLUCOSE 81 mg/dl (70-220); MAGNESIUM 1.4 mg/dl (1.7-2.5); PHOSPHORUS 3.3 mg/dl (2.5-4.9); POTASSIUM 3.3 mmol/L (3.5-5.1); SODIUM 139 mmol/L (135-144)
[2018-07-14] MEDS: INSULIN ASPART [NOVOLOG] 3 ML PEN SC ×4 (07:41→21:45)
[2018-07-14] MEDS: METHENAMINE 1 GM TAB PO (08:37)
[2018-07-14] MEDS: POTASSIUM CHLORIDE (SR) 20 MEQ TAB PO (08:38)
[2018-07-14] MEDS: CHOLECALCIFEROL 1,000 UNIT TAB PO (08:38)
[2018-07-14] MEDS: ASPIRIN 81 MG TAB PO (08:38)
[2018-07-14] MEDS: DULOXETINE 30 MG CAP DR PO (08:39)
[2018-07-14] MEDS: GABAPENTIN 100 MG CAP PO ×3 (08:39→21:37)
[2018-07-14] MEDS: LOSARTAN 25 MG TAB PO (08:39)
[2018-07-14] MEDS: AMLODIPINE 10 MG TAB PO (08:39)
[2018-07-14] MEDS: LACTULOSE 30ML CUP PO ×3 (08:40→21:37)
[2018-07-14] MEDS: NEBIVOLOL 5 MG TAB PO ×2 (08:40→21:37)
[2018-07-14] MEDS: NYSTATIN 30 GM POWDER BTL TOP ×2 (08:40→21:45)
[2018-07-14] MEDS: ENOXAPARIN 40 MG/0.4 ML SYG SC (08:51)
[2018-07-14] MEDS: MAGNESIUM SULFATE 2 GM/50 ML 50 ML IVPB (09:29)
[2018-07-14] MEDS: METOLAZONE 2.5 MG TAB PO (09:30)
[2018-07-14] MEDS: DILTIAZEM 25 MG INJ IV (10:00)
[2018-07-14] MEDS ORDERED: METOPROLOL (XL) 25 MG TAB PO (11:00)
[2018-07-14] MEDS ORDERED: DILTIAZEM 25 MG INJ IV (11:00)
[2018-07-14] MEDS: SPIRONOLACTONE 25 MG TAB PO (11:54)
[2018-07-14] MEDS: MAGNESIUM SULFATE 4 GM/100 ML 100 ML IVPB (11:54)
[2018-07-14] MEDS: BUMETANIDE 2 MG in DEXTROSE 5% 17 ML IV (17:06)
[2018-07-14] MEDS ORDERED: BUMETANIDE 1 MG INJ IV (18:00)
[2018-07-14] MEDS: INSULIN GLARGINE [LANTus] (100 UNITS/ML) SYG SC (20:00)
[2018-07-14] MEDS: LOSARTAN 50 MG TAB PO (21:37)
[2018-07-15] MEDS: ALBUTEROL/IPRATROPIUM (NEB) 3 ML AMP HHN ×4 (01:04→20:43)
[2018-07-15] MEDS: ACCU-CHEK XX (02:00)
[2018-07-15 05:57] LABS: ADD MAN DIFF? NO; BASOPHILS % 0.8 % (0.0-2.0); EOSINOPHILS # 0.2 10^3/ul (0.0-0.5); EOSINOPHILS % 3.3 % (0.0-7.0); HEMATOCRIT 31.4 % (37.0-47.0); HEMOGLOBIN 9.8 g/dl (12.0-16.0); LYMPHOCYTES # 1.5 10^3/ul (0.8-2.9); LYMPHOCYTES % 28.8 % (15.0-51.0); MEAN CORPUSCULAR HEMOGLOBIN 24.8 pg (29.0-33.0); MEAN CORPUSCULAR HGB CONC 31.2 g/dl (32.0-37.0); MEAN CORPUSCULAR VOLUME 79.5 fl (82.0-101.0); MEAN PLATELET VOLUME 10.4 fl (7.4-10.4); MONOCYTE # 0.6 10^3/ul (0.3-0.9); MONOCYTES % 12.4 % (0.0-11.0); NEUTROPHIL # 2.8 10^3/ul (1.6-7.5); NEUTROPHILS % 54.3 % (39.0-77.0); PLATELET COUNT 202 10^3/UL (140-415); RED BLOOD COUNT 3.95 10^6/ul (4.20-5.40); RED CELL DISTRIBUTION WIDTH 18.1 % (11.5-14.5)
[2018-07-15 05:57] LABS: WHITE BLOOD COUNT 5.2 10^3/ul (4.8-10.8)
[2018-07-15] MEDS: BUMETANIDE 2 MG in DEXTROSE 5% 17 ML IV ×2 (06:22→17:50)
[2018-07-15] MEDS: PANTOPRAZOLE (EC) 40 MG TAB PO (06:22)
[2018-07-15 06:41] LABS: B-TYPE NATRIURETIC PEPTIDE 2420 PG/ML (0-450)
[2018-07-15 07:06] LABS: ANION GAP 10 (8-16); BLOOD UREA NITROGEN 23 mg/dl (7-20); CALCIUM 8.9 mg/dl (8.4-10.2); CARBON DIOXIDE 34 mmol/L (21-31); CHLORIDE 95 mmol/L (97-110); CREATININE 0.87 mg/dl (0.44-1.00); GLUCOSE 206 mg/dl (70-220); MAGNESIUM 2.1 mg/dl (1.7-2.5); PHOSPHORUS 2.9 mg/dl (2.5-4.9); POTASSIUM 3.6 mmol/L (3.5-5.1); SODIUM 135 mmol/L (135-144)
[2018-07-15] MEDS: INSULIN ASPART [NOVOLOG] 3 ML PEN SC ×4 (07:58→21:00)
[2018-07-15] MEDS: LACTULOSE 30ML CUP PO ×3 (08:29→20:54)
[2018-07-15] MEDS: LOSARTAN 50 MG TAB PO ×2 (08:30→20:53)
[2018-07-15] MEDS: ASPIRIN 81 MG TAB PO (08:30)
[2018-07-15] MEDS: DULOXETINE 30 MG CAP DR PO (08:30)
[2018-07-15] MEDS: METHENAMINE 1 GM TAB PO (08:30)
[2018-07-15] MEDS: CHOLECALCIFEROL 1,000 UNIT TAB PO (08:30)
[2018-07-15] MEDS: SPIRONOLACTONE 25 MG TAB PO (08:31)
[2018-07-15] MEDS: METOLAZONE 2.5 MG TAB PO (08:31)
[2018-07-15] MEDS: GABAPENTIN 100 MG CAP PO ×3 (08:31→20:53)
[2018-07-15] MEDS: NEBIVOLOL 5 MG TAB PO ×2 (08:31→20:53)
[2018-07-15] MEDS: ENOXAPARIN 40 MG/0.4 ML SYG SC (08:52)
[2018-07-15] MEDS: NYSTATIN 30 GM POWDER BTL TOP ×2 (09:51→21:00)
[2018-07-15] MEDS: APIXABAN 5 MG TABLET PO ×2 (11:31→20:53)
[2018-07-15] MEDS: POTASSIUM CHLORIDE (SR) 20 MEQ TAB PO ×2 (11:32→21:00)
[2018-07-15] MEDS: AMIODARONE 150MG/D5W BOLUS 100 ML IV (12:09)
[2018-07-15] MEDS: AMIODARONE 900 MG in DEXTROSE 5% 482 ML IV (12:20)
[2018-07-15] MEDS: INSULIN GLARGINE [LANTus] (100 UNITS/ML) SYG SC (20:56)
[2018-07-16] MEDS: ALBUTEROL/IPRATROPIUM (NEB) 3 ML AMP HHN ×4 (01:17→20:08)
[2018-07-16] MEDS: ACCU-CHEK XX (02:00)
[2018-07-16] MEDS: BUMETANIDE 2 MG in DEXTROSE 5% 17 ML IV ×2 (05:45→17:30)
[2018-07-16] MEDS: PANTOPRAZOLE (EC) 40 MG TAB PO (05:45)
[2018-07-16 05:52] LABS: ADD MAN DIFF? NO
[2018-07-16 05:57] LABS: BASOPHIL # 0.1 10^3/ul (0.0-0.1); BASOPHILS % 0.8 % (0.0-2.0); EOSINOPHILS # 0.2 10^3/ul (0.0-0.5); EOSINOPHILS % 3.8 % (0.0-7.0); HEMATOCRIT 33.6 % (37.0-47.0); HEMOGLOBIN 10.3 g/dl (12.0-16.0); LYMPHOCYTES # 1.4 10^3/ul (0.8-2.9); LYMPHOCYTES % 23.1 % (15.0-51.0); MEAN CORPUSCULAR HEMOGLOBIN 24.5 pg (29.0-33.0); MEAN CORPUSCULAR HGB CONC 30.7 g/dl (32.0-37.0); MEAN CORPUSCULAR VOLUME 79.8 fl (82.0-101.0); MEAN PLATELET VOLUME 10.8 fl (7.4-10.4); MONOCYTE # 0.6 10^3/ul (0.3-0.9); MONOCYTES % 10.6 % (0.0-11.0); NEUTROPHIL # 3.7 10^3/ul (1.6-7.5); NEUTROPHILS % 61.4 % (39.0-77.0); PLATELET COUNT 214 10^3/UL (140-415); RED BLOOD COUNT 4.21 10^6/ul (4.20-5.40); RED CELL DISTRIBUTION WIDTH 18.4 % (11.5-14.5)
[2018-07-16] MEDS: BISACODYL 10 MG SUPP PR (06:02)
[2018-07-16 06:32] LABS: ALANINE AMINOTRANSFERASE 25 IU/L (13-69); ALBUMIN 2.6 g/dl (3.3-4.9); ALBUMIN/GLOBULIN RATIO 0.65; ALKALINE PHOSPHATASE 99 IU/L (42-121); ANION GAP 11 (8-16); ASPARTATE AMINO TRANSFERASE 31 IU/L (15-46); BILIRUBIN,INDIRECT 0.9 mg/dl (0-1.1); BILIRUBIN,TOTAL 0.9 mg/dl (0.2-1.3); BLOOD UREA NITROGEN 22 mg/dl (7-20); CALCIUM 8.9 mg/dl (8.4-10.2); CARBON DIOXIDE 37 mmol/L (21-31); CHLORIDE 91 mmol/L (97-110); CREATININE 0.81 mg/dl (0.44-1.00); GLUCOSE 236 mg/dl (70-220); POTASSIUM 3.8 mmol/L (3.5-5.1); SODIUM 135 mmol/L (135-144); TOTAL PROTEIN 6.6 g/dl (6.1-8.1)
[2018-07-16 06:35] LABS: B-TYPE NATRIURETIC PEPTIDE 2290 PG/ML (0-450)
[2018-07-16 06:39] LABS: MAGNESIUM 1.4 mg/dl (1.7-2.5)
[2018-07-16 06:39] LABS: PHOSPHORUS 3.2 mg/dl (2.5-4.9)
[2018-07-16 06:43] LABS: FREE T4 (FREE THYROXINE) 1.72 ng/dl (0.85-1.93)
[2018-07-16] MEDS: INSULIN ASPART [NOVOLOG] 3 ML PEN SC ×4 (08:18→20:45)
[2018-07-16] MEDS ORDERED: MAGNESIUM SULFATE 2 GM/50 ML 50 ML IVPB (09:30)
[2018-07-16] MEDS: MAGNESIUM SULFATE 4 GM/100 ML 100 ML IVPB (10:12)
[2018-07-16] MEDS: LACTULOSE 30ML CUP PO ×3 (10:13→20:32)
[2018-07-16] MEDS: ASPIRIN 81 MG TAB PO (10:13)
[2018-07-16] MEDS: METHENAMINE 1 GM TAB PO (10:13)
[2018-07-16] MEDS: SPIRONOLACTONE 25 MG TAB PO (10:16)
[2018-07-16] MEDS: DULOXETINE 30 MG CAP DR PO (10:16)
[2018-07-16] MEDS: POTASSIUM CHLORIDE (SR) 20 MEQ TAB PO (10:16)
[2018-07-16] MEDS: METOLAZONE 2.5 MG TAB PO (10:16)
[2018-07-16] MEDS: CHOLECALCIFEROL 1,000 UNIT TAB PO (10:17)
[2018-07-16] MEDS: LOSARTAN 50 MG TAB PO ×2 (10:17→20:34)
[2018-07-16] MEDS: APIXABAN 5 MG TABLET PO ×2 (10:17→20:34)
[2018-07-16] MEDS: GABAPENTIN 100 MG CAP PO ×3 (10:17→20:32)
[2018-07-16] MEDS: NEBIVOLOL 5 MG TAB PO ×2 (10:18→20:34)
[2018-07-16] MEDS: NYSTATIN 30 GM POWDER BTL TOP ×2 (10:19→20:35)
[2018-07-16] MEDS: DIGOXIN 500 MCG INJ IV (10:25)
[2018-07-16] MEDS: DIGOXIN 0.125 MG TAB PO (13:08)
[2018-07-16] MEDS: ACETAMINOPHEN 325 MG TAB PO (20:33)
[2018-07-16] MEDS: INSULIN GLARGINE [LANTus] (100 UNITS/ML) SYG SC (20:44)
[2018-07-17] MEDS: ALBUTEROL/IPRATROPIUM (NEB) 3 ML AMP HHN ×4 (01:31→20:56)
[2018-07-17] MEDS: ACCU-CHEK XX (02:24)
[2018-07-17 05:47] LABS: ADD MAN DIFF? NO
[2018-07-17 05:51] LABS: WHITE BLOOD COUNT 7.5 10^3/ul (4.8-10.8)
[2018-07-17 05:51] LABS: BASOPHIL # 0.1 10^3/ul (0.0-0.1); BASOPHILS % 0.7 % (0.0-2.0); EOSINOPHILS # 0.3 10^3/ul (0.0-0.5); EOSINOPHILS % 3.7 % (0.0-7.0); HEMATOCRIT 35.1 % (37.0-47.0); HEMOGLOBIN 10.7 g/dl (12.0-16.0); LYMPHOCYTES % 26.3 % (15.0-51.0); MEAN CORPUSCULAR HEMOGLOBIN 24.7 pg (29.0-33.0); MEAN CORPUSCULAR HGB CONC 30.5 g/dl (32.0-37.0); MEAN CORPUSCULAR VOLUME 81.1 fl (82.0-101.0); MEAN PLATELET VOLUME 10.4 fl (7.4-10.4); MONOCYTE # 0.7 10^3/ul (0.3-0.9); MONOCYTES % 9.7 % (0.0-11.0); NEUTROPHIL # 4.5 10^3/ul (1.6-7.5); NEUTROPHILS % 59.2 % (39.0-77.0); PLATELET COUNT 210 10^3/UL (140-415); RED BLOOD COUNT 4.33 10^6/ul (4.20-5.40); RED CELL DISTRIBUTION WIDTH 18.3 % (11.5-14.5)
[2018-07-17] MEDS: PANTOPRAZOLE (EC) 40 MG TAB PO (06:04)
[2018-07-17] MEDS: BUMETANIDE 2 MG in DEXTROSE 5% 17 ML IV ×2 (06:04→17:13)
[2018-07-17 06:27] LABS: ANION GAP 10 (8-16); BLOOD UREA NITROGEN 25 mg/dl (7-20); CALCIUM 9.1 mg/dl (8.4-10.2); CARBON DIOXIDE 37 mmol/L (21-31); CHLORIDE 93 mmol/L (97-110); CREATININE 0.93 mg/dl (0.44-1.00); GLUCOSE 154 mg/dl (70-220); PHOSPHORUS 3.6 mg/dl (2.5-4.9); POTASSIUM 3.9 mmol/L (3.5-5.1); SODIUM 136 mmol/L (135-144)
[2018-07-17 06:30] LABS: ALANINE AMINOTRANSFERASE 21 IU/L (13-69); ALBUMIN 2.3 g/dl (3.3-4.9); ALBUMIN/GLOBULIN RATIO 0.62; ALKALINE PHOSPHATASE 78 IU/L (42-121); ANION GAP 10 (8-16); ASPARTATE AMINO TRANSFERASE 37 IU/L (15-46); BILIRUBIN,INDIRECT 0.8 mg/dl (0-1.1); BILIRUBIN,TOTAL 0.8 mg/dl (0.2-1.3); BLOOD UREA NITROGEN 25 mg/dl (7-20); CALCIUM 9.1 mg/dl (8.4-10.2); CARBON DIOXIDE 38 mmol/L (21-31); CHLORIDE 92 mmol/L (97-110); CREATININE 0.86 mg/dl (0.44-1.00); GLUCOSE 149 mg/dl (70-220); POTASSIUM 4.4 mmol/L (3.5-5.1); SODIUM 136 mmol/L (135-144)
[2018-07-17] MEDS: INSULIN ASPART [NOVOLOG] 3 ML PEN SC ×4 (07:42→22:37)
[2018-07-17 08:12] LABS: B-TYPE NATRIURETIC PEPTIDE 2270 PG/ML (0-450)
[2018-07-17] MEDS: LACTULOSE 30ML CUP PO ×3 (09:23→21:28)
[2018-07-17] MEDS: APIXABAN 5 MG TABLET PO ×2 (09:23→21:28)
[2018-07-17] MEDS: ASPIRIN 81 MG TAB PO (09:23)
[2018-07-17] MEDS: DULOXETINE 30 MG CAP DR PO (09:23)
[2018-07-17] MEDS: GABAPENTIN 100 MG CAP PO ×3 (09:24→21:28)
[2018-07-17] MEDS: CHOLECALCIFEROL 1,000 UNIT TAB PO (09:24)
[2018-07-17] MEDS: LOSARTAN 50 MG TAB PO ×2 (09:24→21:27)
[2018-07-17] MEDS: METOLAZONE 2.5 MG TAB PO (09:24)
[2018-07-17] MEDS: METHENAMINE 1 GM TAB PO (09:24)
[2018-07-17] MEDS: NEBIVOLOL 5 MG TAB PO ×2 (09:25→21:27)
[2018-07-17] MEDS: SPIRONOLACTONE 25 MG TAB PO (09:26)
[2018-07-17] MEDS: NYSTATIN 30 GM POWDER BTL TOP ×2 (09:32→21:30)
[2018-07-17] MEDS: DIGOXIN 0.125 MG TAB PO (12:30)
[2018-07-17] MEDS: DIGOXIN 500 MCG INJ IV (17:12)
[2018-07-17] MEDS: INSULIN GLARGINE [LANTus] (100 UNITS/ML) SYG SC (22:38)
[2018-07-18] MEDS: ACCU-CHEK XX (02:30)
[2018-07-18] MEDS: ALBUTEROL/IPRATROPIUM (NEB) 3 ML AMP HHN ×4 (02:54→21:22)
[2018-07-18] MEDS: PANTOPRAZOLE (EC) 40 MG TAB PO (06:33)
[2018-07-18] MEDS: BUMETANIDE 2 MG in DEXTROSE 5% 17 ML IV ×2 (06:33→17:14)
[2018-07-18 06:53] LABS: B-TYPE NATRIURETIC PEPTIDE 1310 PG/ML (0-450)
[2018-07-18 06:58] LABS: ALANINE AMINOTRANSFERASE 22 IU/L (13-69); ALBUMIN 2.5 g/dl (3.3-4.9); ALBUMIN/GLOBULIN RATIO 0.69; ALKALINE PHOSPHATASE 88 IU/L (42-121); ANION GAP 12 (8-16); ASPARTATE AMINO TRANSFERASE 28 IU/L (15-46); BILIRUBIN,INDIRECT 0.5 mg/dl (0-1.1); BILIRUBIN,TOTAL 0.5 mg/dl (0.2-1.3); BLOOD UREA NITROGEN 29 mg/dl (7-20); CALCIUM 9.3 mg/dl (8.4-10.2); CARBON DIOXIDE 37 mmol/L (21-31); CHLORIDE 91 mmol/L (97-110); CREATININE 1.02 mg/dl (0.44-1.00); GLUCOSE 140 mg/dl (70-220); MAGNESIUM 1.6 mg/dl (1.7-2.5); POTASSIUM 3.5 mmol/L (3.5-5.1); SODIUM 136 mmol/L (135-144); TOTAL PROTEIN 6.1 g/dl (6.1-8.1)
[2018-07-18] MEDS: INSULIN ASPART [NOVOLOG] 3 ML PEN SC ×4 (08:00→21:19)
[2018-07-18] MEDS: MAGNESIUM SULFATE 2 GM/50 ML 50 ML IVPB (09:31)
[2018-07-18] MEDS: LACTULOSE 30ML CUP PO ×3 (09:32→21:00)
[2018-07-18] MEDS: APIXABAN 5 MG TABLET PO ×2 (09:34→21:00)
[2018-07-18] MEDS: CHOLECALCIFEROL 1,000 UNIT TAB PO (09:34)
[2018-07-18] MEDS: METOLAZONE 2.5 MG TAB PO (09:34)
[2018-07-18] MEDS: GABAPENTIN 100 MG CAP PO ×3 (09:35→21:00)
[2018-07-18] MEDS: DULOXETINE 30 MG CAP DR PO (09:35)
[2018-07-18] MEDS: METHENAMINE 1 GM TAB PO (09:35)
[2018-07-18] MEDS: LOSARTAN 50 MG TAB PO ×2 (09:35→21:00)
[2018-07-18] MEDS: ASPIRIN 81 MG TAB PO (09:35)
[2018-07-18] MEDS: NEBIVOLOL 5 MG TAB PO ×2 (09:35→21:00)
[2018-07-18] MEDS: SPIRONOLACTONE 25 MG TAB PO (09:35)
[2018-07-18] MEDS: NYSTATIN 30 GM POWDER BTL TOP ×2 (09:40→21:01)
[2018-07-18] MEDS ORDERED: VITAMIN A & D 5 GM OINT PACKET TOP (09:41)
[2018-07-18] MEDS: DIGOXIN 0.125 MG TAB PO (13:05)
[2018-07-18] MEDS: INSULIN GLARGINE [LANTus] (100 UNITS/ML) SYG SC (21:19)
[2018-07-19] MEDS: ACCU-CHEK XX (01:27)
[2018-07-19] MEDS: ALBUTEROL/IPRATROPIUM (NEB) 3 ML AMP HHN ×4 (02:21→19:59)
[2018-07-19 05:31] LABS: ADD MAN DIFF? NO
[2018-07-19] MEDS: BUMETANIDE 2 MG in DEXTROSE 5% 17 ML IV ×2 (05:48→18:13)
[2018-07-19 06:03] LABS: ANION GAP 14 (8-16); BASOPHIL # 0.1 10^3/ul (0.0-0.1); BASOPHILS % 0.8 % (0.0-2.0); BLOOD UREA NITROGEN 33 mg/dl (7-20); CALCIUM 9.4 mg/dl (8.4-10.2); CARBON DIOXIDE 33 mmol/L (21-31); CHLORIDE 92 mmol/L (97-110); CREATININE 1.02 mg/dl (0.44-1.00); EOSINOPHILS # 0.4 10^3/ul (0.0-0.5); EOSINOPHILS % 5.9 % (0.0-7.0); GLUCOSE 151 mg/dl (70-220); HEMATOCRIT 36.9 % (37.0-47.0); HEMOGLOBIN 11.2 g/dl (12.0-16.0); LYMPHOCYTES # 1.9 10^3/ul (0.8-2.9); LYMPHOCYTES % 31.7 % (15.0-51.0); MAGNESIUM 1.7 mg/dl (1.7-2.5); MEAN CORPUSCULAR HEMOGLOBIN 24.9 pg (29.0-33.0); MEAN CORPUSCULAR HGB CONC 30.4 g/dl (32.0-37.0); MEAN PLATELET VOLUME 10.7 fl (7.4-10.4); MONOCYTE # 0.6 10^3/ul (0.3-0.9); MONOCYTES % 9.7 % (0.0-11.0); NEUTROPHIL # 3.1 10^3/ul (1.6-7.5); NEUTROPHILS % 51.6 % (39.0-77.0); PLATELET COUNT 216 10^3/UL (140-415); POTASSIUM 3.7 mmol/L (3.5-5.1); RED CELL DISTRIBUTION WIDTH 18.8 % (11.5-14.5); SODIUM 135 mmol/L (135-144)
[2018-07-19 06:03] LABS: WHITE BLOOD COUNT 6.1 10^3/ul (4.8-10.8)
[2018-07-19] MEDS: PANTOPRAZOLE (EC) 40 MG TAB PO (06:04)
[2018-07-19 06:09] LABS: POSITIVE DIFF @See below
[2018-07-19] MEDS: CHOLECALCIFEROL 1,000 UNIT TAB PO (08:07)
[2018-07-19] MEDS: SPIRONOLACTONE 25 MG TAB PO (08:08)
[2018-07-19] MEDS: APIXABAN 5 MG TABLET PO ×2 (08:08→21:02)
[2018-07-19] MEDS: METHENAMINE 1 GM TAB PO (08:08)
[2018-07-19] MEDS: GABAPENTIN 100 MG CAP PO ×3 (08:08→21:02)
[2018-07-19] MEDS: DULOXETINE 30 MG CAP DR PO (08:08)
[2018-07-19] MEDS: ASPIRIN 81 MG TAB PO (08:08)
[2018-07-19] MEDS: LACTULOSE 30ML CUP PO ×3 (08:08→21:03)
[2018-07-19] MEDS: LOSARTAN 50 MG TAB PO ×2 (08:09→21:02)
[2018-07-19] MEDS: METOLAZONE 2.5 MG TAB PO (08:09)
[2018-07-19] MEDS: NEBIVOLOL 5 MG TAB PO ×2 (08:09→21:02)
[2018-07-19] MEDS: NYSTATIN 30 GM POWDER BTL TOP ×2 (08:10→21:03)
[2018-07-19] MEDS: INSULIN ASPART [NOVOLOG] 3 ML PEN SC ×4 (08:27→21:00)
[2018-07-19] MEDS: DIGOXIN 0.125 MG TAB PO (12:31)
[2018-07-19] MEDS: INSULIN GLARGINE [LANTus] (100 UNITS/ML) SYG SC (22:02)
[2018-07-20] MEDS: ACCU-CHEK XX (02:00)
[2018-07-20] MEDS: ALBUTEROL/IPRATROPIUM (NEB) 3 ML AMP HHN ×4 (02:32→19:32)
[2018-07-20] MEDS: BUMETANIDE 2 MG in DEXTROSE 5% 17 ML IV ×2 (06:10→18:22)
[2018-07-20] MEDS: PANTOPRAZOLE (EC) 40 MG TAB PO (06:11)
[2018-07-20] MEDS: INSULIN ASPART [NOVOLOG] 3 ML PEN SC ×4 (07:45→20:37)
[2018-07-20] MEDS: SPIRONOLACTONE 25 MG TAB PO (08:40)
[2018-07-20] MEDS: ASPIRIN 81 MG TAB PO (08:40)
[2018-07-20] MEDS: METHENAMINE 1 GM TAB PO (08:41)
[2018-07-20] MEDS: CHOLECALCIFEROL 1,000 UNIT TAB PO (08:41)
[2018-07-20] MEDS: METOLAZONE 2.5 MG TAB PO (08:41)
[2018-07-20] MEDS: NEBIVOLOL 5 MG TAB PO ×2 (08:42→20:36)
[2018-07-20] MEDS: LACTULOSE 30ML CUP PO ×3 (08:42→20:37)
[2018-07-20] MEDS: GABAPENTIN 100 MG CAP PO ×3 (08:42→20:37)
[2018-07-20] MEDS: APIXABAN 5 MG TABLET PO ×2 (08:42→20:37)
[2018-07-20] MEDS: LOSARTAN 50 MG TAB PO ×2 (08:42→20:37)
[2018-07-20] MEDS: NYSTATIN 30 GM POWDER BTL TOP ×2 (08:43→20:37)
[2018-07-20] MEDS: DULOXETINE 30 MG CAP DR PO (08:59)
[2018-07-20] MEDS: DIGOXIN 0.125 MG TAB PO (13:31)
[2018-07-20 16:32] LABS: AADO2 Arterial 73.4 mmHg (7.0-24.0); Allen Test ACCEPTAB; Arterial Base Excess 10.9 mmol/L (-3.0-3); Arterial Blood Gas Oxygen Sat 93.5 mmHG (95.0-100.0); Arterial COHb 0.8 % (0.0-3.0); Arterial Fraction of Oxyhgb 92.7 % (93.0-99.0); Arterial HCO3 34.9 mmol/L (22.0-26.0); Arterial MetHb 0.1 % (0.0-1.5); Arterial Total Hemglobin 12.7 g/dl (12.0-18.0); Arterial pCO2 43.3 mmhg (35-45); MODE NASAL CANNULA; Site Left Radial
[2018-07-20] MEDS: MAGNESIUM SULFATE 2 GM/50 ML 50 ML IVPB (16:41)
[2018-07-20] MEDS: INSULIN GLARGINE [LANTus] (100 UNITS/ML) SYG SC (20:00)
[2018-07-21] MEDS: ALBUTEROL/IPRATROPIUM (NEB) 3 ML AMP HHN ×4 (01:04→19:52)
[2018-07-21] MEDS: ACCU-CHEK XX (02:00)
[2018-07-21] MEDS: BUMETANIDE 2 MG in DEXTROSE 5% 17 ML IV (05:06)
[2018-07-21 05:57] LABS: WHITE BLOOD COUNT 5.8 10^3/ul (4.8-10.8)
[2018-07-21 05:57] LABS: ADD MAN DIFF? NO; BASOPHIL # 0.1 10^3/ul (0.0-0.1); BASOPHILS % 1.2 % (0.0-2.0); EOSINOPHILS # 0.3 10^3/ul (0.0-0.5); EOSINOPHILS % 5.7 % (0.0-7.0); HEMATOCRIT 38.1 % (37.0-47.0); HEMOGLOBIN 11.8 g/dl (12.0-16.0); LYMPHOCYTES # 2.1 10^3/ul (0.8-2.9); LYMPHOCYTES % 36.7 % (15.0-51.0); MEAN CORPUSCULAR HEMOGLOBIN 25.1 pg (29.0-33.0); MEAN CORPUSCULAR VOLUME 81.1 fl (82.0-101.0); MEAN PLATELET VOLUME 10.2 fl (7.4-10.4); MONOCYTE # 0.6 10^3/ul (0.3-0.9); MONOCYTES % 9.9 % (0.0-11.0); NEUTROPHIL # 2.7 10^3/ul (1.6-7.5); NEUTROPHILS % 46.2 % (39.0-77.0); PLATELET COUNT 271 10^3/UL (140-415); RED CELL DISTRIBUTION WIDTH 18.9 % (11.5-14.5)
[2018-07-21 06:08] LABS: ALANINE AMINOTRANSFERASE 25 IU/L (13-69); ALBUMIN 2.7 g/dl (3.3-4.9); ALBUMIN/GLOBULIN RATIO 0.69; ALKALINE PHOSPHATASE 101 IU/L (42-121); ANION GAP 14 (8-16); ASPARTATE AMINO TRANSFERASE 36 IU/L (15-46); BILIRUBIN,INDIRECT 0.9 mg/dl (0-1.1); BILIRUBIN,TOTAL 0.9 mg/dl (0.2-1.3); BLOOD UREA NITROGEN 39 mg/dl (7-20); CALCIUM 9.8 mg/dl (8.4-10.2); CARBON DIOXIDE 37 mmol/L (21-31); CHLORIDE 92 mmol/L (97-110); CREATININE 1.12 mg/dl (0.44-1.00); GLUCOSE 131 mg/dl (70-220); POTASSIUM 3.8 mmol/L (3.5-5.1); SODIUM 139 mmol/L (135-144); TOTAL PROTEIN 6.6 g/dl (6.1-8.1)
[2018-07-21 06:15] LABS: B-TYPE NATRIURETIC PEPTIDE 1000 PG/ML (0-450)
[2018-07-21 06:18] LABS: DIGOXIN 1.2 ng/ml (1.0-2.0)
[2018-07-21] MEDS: PANTOPRAZOLE (EC) 40 MG TAB PO (06:21)
[2018-07-21 07:30] LABS: MAGNESIUM 1.9 mg/dl (1.7-2.5)
[2018-07-21 07:30] LABS: PHOSPHORUS 4.1 mg/dl (2.5-4.9)
[2018-07-21] MEDS: INSULIN ASPART [NOVOLOG] 3 ML PEN SC ×4 (07:53→21:04)
[2018-07-21] MEDS: LACTULOSE 30ML CUP PO ×3 (08:28→21:12)
[2018-07-21] MEDS: NYSTATIN 30 GM POWDER BTL TOP ×2 (08:28→21:12)
[2018-07-21] MEDS: CHOLECALCIFEROL 1,000 UNIT TAB PO (08:28)
[2018-07-21] MEDS: APIXABAN 5 MG TABLET PO ×2 (08:29→21:10)
[2018-07-21] MEDS: METOLAZONE 2.5 MG TAB PO (08:29)
[2018-07-21] MEDS: METHENAMINE 1 GM TAB PO (08:29)
[2018-07-21] MEDS: LOSARTAN 50 MG TAB PO ×2 (08:29→21:10)
[2018-07-21] MEDS: ASPIRIN 81 MG TAB PO (08:29)
[2018-07-21] MEDS: GABAPENTIN 100 MG CAP PO (08:30)
[2018-07-21] MEDS: NEBIVOLOL 5 MG TAB PO ×2 (08:30→21:11)
[2018-07-21] MEDS: SPIRONOLACTONE 25 MG TAB PO (08:34)
[2018-07-21] MEDS: DIGOXIN 0.125 MG TAB PO (12:09)
[2018-07-21] MEDS: INSULIN GLARGINE [LANTus] (100 UNITS/ML) SYG SC (21:07)
[2018-07-21] MEDS: MAGNESIUM SULFATE 2 GM/50 ML 50 ML IVPB (21:10)
[2018-07-21] MEDS: ACETAMINOPHEN 325 MG TAB PO (21:11)
[2018-07-22] MEDS: ALBUTEROL/IPRATROPIUM (NEB) 3 ML AMP HHN ×4 (01:55→19:49)
[2018-07-22] MEDS: ACCU-CHEK XX (02:05)
[2018-07-22 05:54] LABS: ADD MAN DIFF? NO
[2018-07-22 05:58] LABS: WHITE BLOOD COUNT 7.1 10^3/ul (4.8-10.8)
[2018-07-22 05:58] LABS: BASOPHIL # 0.1 10^3/ul (0.0-0.1); EOSINOPHILS # 0.3 10^3/ul (0.0-0.5); EOSINOPHILS % 3.9 % (0.0-7.0); HEMATOCRIT 39.4 % (37.0-47.0); HEMOGLOBIN 12.2 g/dl (12.0-16.0); LYMPHOCYTES % 27.5 % (15.0-51.0); MEAN CORPUSCULAR HEMOGLOBIN 24.8 pg (29.0-33.0); MEAN CORPUSCULAR VOLUME 80.1 fl (82.0-101.0); MEAN PLATELET VOLUME 10.1 fl (7.4-10.4); MONOCYTE # 0.6 10^3/ul (0.3-0.9); MONOCYTES % 8.2 % (0.0-11.0); NEUTROPHIL # 4.2 10^3/ul (1.6-7.5); NEUTROPHILS % 58.8 % (39.0-77.0); PLATELET COUNT 320 10^3/UL (140-415); RED BLOOD COUNT 4.92 10^6/ul (4.20-5.40); RED CELL DISTRIBUTION WIDTH 19.4 % (11.5-14.5)
[2018-07-22 06:31] LABS: ANION GAP 17 (8-16); BLOOD UREA NITROGEN 47 mg/dl (7-20); CALCIUM 9.9 mg/dl (8.4-10.2); CARBON DIOXIDE 34 mmol/L (21-31); CHLORIDE 91 mmol/L (97-110); CREATININE 1.21 mg/dl (0.44-1.00); GLUCOSE 185 mg/dl (70-220); MAGNESIUM 2.3 mg/dl (1.7-2.5); PHOSPHORUS 4.2 mg/dl (2.5-4.9); POTASSIUM 3.8 mmol/L (3.5-5.1); SODIUM 138 mmol/L (135-144)
[2018-07-22] MEDS: PANTOPRAZOLE (EC) 40 MG TAB PO (07:00)
[2018-07-22] MEDS ORDERED: BUMETANIDE 1 MG TAB PO (09:00)
[2018-07-22] MEDS: LOSARTAN 50 MG TAB PO ×2 (09:00→21:00)
[2018-07-22] MEDS: ASPIRIN 81 MG TAB PO (09:00)
[2018-07-22] MEDS: APIXABAN 5 MG TABLET PO ×2 (09:00→21:00)
[2018-07-22] MEDS: LACTULOSE 30ML CUP PO ×3 (09:00→21:00)
[2018-07-22] MEDS: CHOLECALCIFEROL 1,000 UNIT TAB PO (09:00)
[2018-07-22] MEDS: METHENAMINE 1 GM TAB PO (09:00)
[2018-07-22] MEDS: NYSTATIN 30 GM POWDER BTL TOP ×2 (09:00→21:38)
[2018-07-22] MEDS: NEBIVOLOL 5 MG TAB PO ×2 (09:00→21:00)
[2018-07-22] MEDS ORDERED: METOLAZONE 2.5 MG TAB PO (09:00)
[2018-07-22] MEDS: SPIRONOLACTONE 25 MG TAB PO (09:00)
[2018-07-22] MEDS: INSULIN ASPART [NOVOLOG] 3 ML PEN SC ×4 (09:11→21:26)
[2018-07-22] MEDS: DEXTROSE 5%-0.9% NACL 1,000 ML IV (11:41)
[2018-07-22] MEDS: DIGOXIN 500 MCG INJ IV (11:44)
[2018-07-22] MEDS: INSULIN GLARGINE [LANTus] (100 UNITS/ML) SYG SC (21:26)
[2018-07-23] MEDS: ALBUTEROL/IPRATROPIUM (NEB) 3 ML AMP HHN ×4 (01:21→21:01)
[2018-07-23] MEDS: ACCU-CHEK XX (03:01)
[2018-07-23 05:45] LABS: ADD MAN DIFF? NO
[2018-07-23 05:55] LABS: BASOPHIL # 0.1 10^3/ul (0.0-0.1); EOSINOPHILS # 0.3 10^3/ul (0.0-0.5); EOSINOPHILS % 6.4 % (0.0-7.0); HEMOGLOBIN 11.7 g/dl (12.0-16.0); LYMPHOCYTES # 1.6 10^3/ul (0.8-2.9); LYMPHOCYTES % 32.9 % (15.0-51.0); MEAN CORPUSCULAR HEMOGLOBIN 25.1 pg (29.0-33.0); MEAN CORPUSCULAR HGB CONC 30.8 g/dl (32.0-37.0); MEAN CORPUSCULAR VOLUME 81.5 fl (82.0-101.0); MEAN PLATELET VOLUME 10.4 fl (7.4-10.4); MONOCYTE # 0.4 10^3/ul (0.3-0.9); MONOCYTES % 8.4 % (0.0-11.0); NEUTROPHIL # 2.5 10^3/ul (1.6-7.5); NEUTROPHILS % 50.9 % (39.0-77.0); PLATELET COUNT 291 10^3/UL (140-415); RED BLOOD COUNT 4.66 10^6/ul (4.20-5.40); RED CELL DISTRIBUTION WIDTH 19.2 % (11.5-14.5)
[2018-07-23 06:21] LABS: ANION GAP 10 (8-16); BLOOD UREA NITROGEN 48 mg/dl (7-20); CALCIUM 9.4 mg/dl (8.4-10.2); CARBON DIOXIDE 35 mmol/L (21-31); CHLORIDE 100 mmol/L (97-110); CREATININE 1.22 mg/dl (0.44-1.00); GLUCOSE 156 mg/dl (70-220); MAGNESIUM 2.1 mg/dl (1.7-2.5); PHOSPHORUS 3.2 mg/dl (2.5-4.9); POTASSIUM 3.8 mmol/L (3.5-5.1); SODIUM 141 mmol/L (135-144)
[2018-07-23] MEDS: PANTOPRAZOLE (EC) 40 MG TAB PO (06:29)
[2018-07-23] MEDS: DEXTROSE 5%-0.9% NACL 1,000 ML IV (06:29)
[2018-07-23] MEDS: INSULIN ASPART [NOVOLOG] 3 ML PEN SC ×4 (07:48→20:38)
[2018-07-23] MEDS: CHOLECALCIFEROL 1,000 UNIT TAB PO (09:00)
[2018-07-23] MEDS: LACTULOSE 30ML CUP PO ×3 (09:00→21:00)
[2018-07-23] MEDS: NEBIVOLOL 5 MG TAB PO ×2 (09:00→21:00)
[2018-07-23] MEDS: APIXABAN 5 MG TABLET PO ×2 (09:00→21:00)
[2018-07-23] MEDS: SPIRONOLACTONE 25 MG TAB PO (09:00)
[2018-07-23] MEDS: METHENAMINE 1 GM TAB PO (09:00)
[2018-07-23] MEDS: ASPIRIN 81 MG TAB PO (09:00)
[2018-07-23] MEDS: NYSTATIN 30 GM POWDER BTL TOP ×2 (13:37→21:00)
[2018-07-23] MEDS: INSULIN GLARGINE [LANTus] (100 UNITS/ML) SYG SC (20:38)
[2018-07-24] MEDS: ALBUTEROL/IPRATROPIUM (NEB) 3 ML AMP HHN ×4 (02:00→19:49)
[2018-07-24] MEDS: ACCU-CHEK XX (02:00)
[2018-07-24] MEDS: DEXTROSE 5%-0.9% NACL 1,000 ML IV (04:00)
[2018-07-24 05:46] LABS: ADD MAN DIFF? NO
[2018-07-24 05:49] LABS: WHITE BLOOD COUNT 5.1 10^3/ul (4.8-10.8)
[2018-07-24 05:49] LABS: BASOPHILS % 0.8 % (0.0-2.0); EOSINOPHILS # 0.4 10^3/ul (0.0-0.5); EOSINOPHILS % 8.4 % (0.0-7.0); HEMATOCRIT 36.9 % (37.0-47.0); HEMOGLOBIN 11.4 g/dl (12.0-16.0); LYMPHOCYTES # 1.8 10^3/ul (0.8-2.9); LYMPHOCYTES % 35.6 % (15.0-51.0); MEAN CORPUSCULAR HEMOGLOBIN 25.4 pg (29.0-33.0); MEAN CORPUSCULAR HGB CONC 30.9 g/dl (32.0-37.0); MEAN CORPUSCULAR VOLUME 82.4 fl (82.0-101.0); MEAN PLATELET VOLUME 9.9 fl (7.4-10.4); MONOCYTE # 0.5 10^3/ul (0.3-0.9); MONOCYTES % 9.6 % (0.0-11.0); NEUTROPHIL # 2.3 10^3/ul (1.6-7.5); NEUTROPHILS % 44.8 % (39.0-77.0); PLATELET COUNT 256 10^3/UL (140-415); RED BLOOD COUNT 4.48 10^6/ul (4.20-5.40); RED CELL DISTRIBUTION WIDTH 18.9 % (11.5-14.5)
[2018-07-24 06:29] LABS: ANION GAP 10 (8-16); BLOOD UREA NITROGEN 41 mg/dl (7-20); CALCIUM 9.3 mg/dl (8.4-10.2); CARBON DIOXIDE 33 mmol/L (21-31); CHLORIDE 103 mmol/L (97-110); CREATININE 0.94 mg/dl (0.44-1.00); GLUCOSE 168 mg/dl (70-220); MAGNESIUM 1.9 mg/dl (1.7-2.5); PHOSPHORUS 2.3 mg/dl (2.5-4.9); POTASSIUM 3.4 mmol/L (3.5-5.1); SODIUM 143 mmol/L (135-144)
[2018-07-24] MEDS: PANTOPRAZOLE (EC) 40 MG TAB PO (08:00)
[2018-07-24] MEDS: CHOLECALCIFEROL 1,000 UNIT TAB PO (08:18)
[2018-07-24] MEDS: ASPIRIN 81 MG TAB PO (08:18)
[2018-07-24] MEDS: APIXABAN 5 MG TABLET PO ×2 (08:19→20:22)
[2018-07-24] MEDS: NYSTATIN 30 GM POWDER BTL TOP ×2 (08:19→21:29)
[2018-07-24] MEDS: LACTULOSE 30ML CUP PO ×3 (08:20→20:22)
[2018-07-24] MEDS: INSULIN ASPART [NOVOLOG] 3 ML PEN SC ×4 (08:32→20:42)
[2018-07-24] MEDS: METHENAMINE 1 GM TAB PO (08:44)
[2018-07-24] MEDS: SPIRONOLACTONE 25 MG TAB PO (08:44)
[2018-07-24] MEDS: NEBIVOLOL 5 MG TAB PO ×2 (08:45→20:22)
[2018-07-24] MEDS: NEUTRA-PHOS 250 MG PACKET PO (10:00)
[2018-07-24] MEDS: POTASSIUM CHLORIDE (SR) 20 MEQ TAB PO (10:24)
[2018-07-24] MEDS: DIGOXIN 500 MCG INJ IV (12:12)
[2018-07-24] MEDS: ONDANSETRON 4 MG INJ IV (14:32)
[2018-07-24] MEDS: INSULIN GLARGINE [LANTus] (100 UNITS/ML) SYG SC (20:42)
[2018-07-25] MEDS: ALBUTEROL/IPRATROPIUM (NEB) 3 ML AMP HHN ×4 (01:46→20:55)
[2018-07-25] MEDS: ACCU-CHEK XX (02:08)
[2018-07-25] MEDS: DEXTROSE 5%-0.9% NACL 1,000 ML IV (02:08)
[2018-07-25 06:11] LABS: ADD MAN DIFF? NO
[2018-07-25 06:16] LABS: BASOPHIL # 0.1 10^3/ul (0.0-0.1); BASOPHILS % 0.9 % (0.0-2.0); EOSINOPHILS # 0.3 10^3/ul (0.0-0.5); EOSINOPHILS % 6.2 % (0.0-7.0); LYMPHOCYTES # 1.9 10^3/ul (0.8-2.9); LYMPHOCYTES % 35.9 % (15.0-51.0); MEAN CORPUSCULAR HEMOGLOBIN 25.2 pg (29.0-33.0); MEAN CORPUSCULAR HGB CONC 30.6 g/dl (32.0-37.0); MEAN CORPUSCULAR VOLUME 82.4 fl (82.0-101.0); MEAN PLATELET VOLUME 10.2 fl (7.4-10.4); MONOCYTE # 0.5 10^3/ul (0.3-0.9); MONOCYTES % 8.6 % (0.0-11.0); NEUTROPHIL # 2.6 10^3/ul (1.6-7.5); PLATELET COUNT 250 10^3/UL (140-415); RED BLOOD COUNT 4.37 10^6/ul (4.20-5.40); RED CELL DISTRIBUTION WIDTH 19.1 % (11.5-14.5)
[2018-07-25 06:16] LABS: WHITE BLOOD COUNT 5.3 10^3/ul (4.8-10.8)
[2018-07-25 06:50] LABS: ANION GAP 9 (8-16); BLOOD UREA NITROGEN 27 mg/dl (7-20); CALCIUM 9.1 mg/dl (8.4-10.2); CARBON DIOXIDE 31 mmol/L (21-31); CHLORIDE 108 mmol/L (97-110); CREATININE 0.82 mg/dl (0.44-1.00); GLUCOSE 134 mg/dl (70-220); MAGNESIUM 1.7 mg/dl (1.7-2.5); PHOSPHORUS 2.4 mg/dl (2.5-4.9); POTASSIUM 3.9 mmol/L (3.5-5.1); SODIUM 144 mmol/L (135-144)
[2018-07-25] MEDS: INSULIN ASPART [NOVOLOG] 3 ML PEN SC ×4 (07:30→21:00)
[2018-07-25] MEDS: LACTULOSE 30ML CUP PO ×3 (08:15→21:53)
[2018-07-25] MEDS: APIXABAN 5 MG TABLET PO ×2 (08:16→21:45)
[2018-07-25] MEDS: PANTOPRAZOLE (EC) 40 MG TAB PO (08:16)
[2018-07-25] MEDS: SPIRONOLACTONE 25 MG TAB PO (08:16)
[2018-07-25] MEDS: CHOLECALCIFEROL 1,000 UNIT TAB PO (08:16)
[2018-07-25] MEDS: ASPIRIN 81 MG TAB PO (08:16)
[2018-07-25] MEDS: NEBIVOLOL 5 MG TAB PO ×2 (08:17→21:52)
[2018-07-25] MEDS: NYSTATIN 30 GM POWDER BTL TOP ×2 (08:17→22:24)
[2018-07-25] MEDS: NEUTRA-PHOS 250 MG PACKET PO ×2 (11:02→21:45)
[2018-07-25] MEDS: METHENAMINE 1 GM TAB PO (11:02)
[2018-07-25] MEDS: MAGNESIUM SULFATE 3 GM in DEXTROSE 5% 100 ML IVPB (12:39)
[2018-07-25] MEDS: ERTAPENEM SODIUM 1 GM in SOD CHLORIDE 0.9% 100 ML IVPB (15:00)
[2018-07-25] MEDS: ACETAMINOPHEN 325 MG TAB PO (20:57)
[2018-07-25] MEDS: INSULIN GLARGINE [LANTus] (100 UNITS/ML) SYG SC (21:47)
[2018-07-25] MEDS: ONDANSETRON 4 MG INJ IV (22:00)
[2018-07-26] MEDS: DEXTROSE 5%-0.9% NACL 1,000 ML IV (01:00)
[2018-07-26] MEDS: ALBUTEROL/IPRATROPIUM (NEB) 3 ML AMP HHN ×4 (01:45→23:42)
[2018-07-26] MEDS: ACCU-CHEK XX (02:00)
[2018-07-26] MEDS: PANTOPRAZOLE (EC) 40 MG TAB PO (06:24)
[2018-07-26] MEDS: BISACODYL 10 MG SUPP PR (06:24)
[2018-07-26 07:03] LABS: ANION GAP 10 (8-16); BLOOD UREA NITROGEN 18 mg/dl (7-20); CALCIUM 9.2 mg/dl (8.4-10.2); CARBON DIOXIDE 27 mmol/L (21-31); CHLORIDE 106 mmol/L (97-110); CREATININE 0.73 mg/dl (0.44-1.00); GLUCOSE 94 mg/dl (70-220); PHOSPHORUS 3.3 mg/dl (2.5-4.9); POTASSIUM 3.7 mmol/L (3.5-5.1); SODIUM 139 mmol/L (135-144)
[2018-07-26] MEDS: INSULIN ASPART [NOVOLOG] 3 ML PEN SC ×4 (07:48→21:00)
[2018-07-26] MEDS: METHENAMINE 1 GM TAB PO (08:20)
[2018-07-26] MEDS: NEUTRA-PHOS 250 MG PACKET PO ×2 (08:20→21:41)
[2018-07-26] MEDS: SPIRONOLACTONE 25 MG TAB PO (08:20)
[2018-07-26] MEDS: APIXABAN 5 MG TABLET PO ×2 (08:20→21:40)
[2018-07-26] MEDS: CHOLECALCIFEROL 1,000 UNIT TAB PO (08:20)
[2018-07-26] MEDS: ASPIRIN 81 MG TAB PO (08:20)
[2018-07-26] MEDS: LACTULOSE 30ML CUP PO ×3 (08:20→21:42)
[2018-07-26] MEDS: NYSTATIN 30 GM POWDER BTL TOP ×2 (08:21→21:42)
[2018-07-26] MEDS: NEBIVOLOL 5 MG TAB PO ×2 (08:21→21:41)
[2018-07-26] MEDS: DIGOXIN 500 MCG INJ IV (12:37)
[2018-07-26] MEDS: ERTAPENEM SODIUM 1 GM in SOD CHLORIDE 0.9% 100 ML IVPB (15:29)
[2018-07-26] MEDS: INSULIN GLARGINE [LANTus] (100 UNITS/ML) SYG SC (21:55)
[2018-07-27] MEDS: DEXTROSE 5%-0.9% NACL 1,000 ML IV (01:00)
[2018-07-27] MEDS: ACCU-CHEK XX (02:00)
[2018-07-27] MEDS: ALBUTEROL/IPRATROPIUM (NEB) 3 ML AMP HHN ×3 (02:10→15:11)
[2018-07-27 05:42] LABS: ADD MAN DIFF? NO
[2018-07-27 05:47] LABS: WHITE BLOOD COUNT 5.7 10^3/ul (4.8-10.8)
[2018-07-27 05:47] LABS: BASOPHIL # 0.1 10^3/ul (0.0-0.1); EOSINOPHILS # 0.3 10^3/ul (0.0-0.5); EOSINOPHILS % 5.6 % (0.0-7.0); HEMATOCRIT 36.8 % (37.0-47.0); HEMOGLOBIN 11.6 g/dl (12.0-16.0); LYMPHOCYTES # 2.2 10^3/ul (0.8-2.9); LYMPHOCYTES % 39.2 % (15.0-51.0); MEAN CORPUSCULAR HEMOGLOBIN 25.4 pg (29.0-33.0); MEAN CORPUSCULAR HGB CONC 31.5 g/dl (32.0-37.0); MEAN CORPUSCULAR VOLUME 80.7 fl (82.0-101.0); MEAN PLATELET VOLUME 9.8 fl (7.4-10.4); MONOCYTE # 0.5 10^3/ul (0.3-0.9); MONOCYTES % 8.9 % (0.0-11.0); NEUTROPHIL # 2.6 10^3/ul (1.6-7.5); NEUTROPHILS % 44.8 % (39.0-77.0); PLATELET COUNT 227 10^3/UL (140-415); RED BLOOD COUNT 4.56 10^6/ul (4.20-5.40); RED CELL DISTRIBUTION WIDTH 19.5 % (11.5-14.5)
[2018-07-27 06:15] LABS: DIGOXIN 0.8 ng/ml (1.0-2.0)
[2018-07-27 06:19] LABS: ALANINE AMINOTRANSFERASE 17 IU/L (13-69); ALBUMIN 2.7 g/dl (3.3-4.9); ALBUMIN/GLOBULIN RATIO 0.69; ALKALINE PHOSPHATASE 90 IU/L (42-121); ANION GAP 10 (8-16); ASPARTATE AMINO TRANSFERASE 42 IU/L (15-46); BILIRUBIN,INDIRECT 0.7 mg/dl (0-1.1); BILIRUBIN,TOTAL 0.7 mg/dl (0.2-1.3); BLOOD UREA NITROGEN 15 mg/dl (7-20); CALCIUM 9.3 mg/dl (8.4-10.2); CARBON DIOXIDE 29 mmol/L (21-31); CHLORIDE 106 mmol/L (97-110); CREATININE 0.75 mg/dl (0.44-1.00); GLUCOSE 116 mg/dl (70-220); MAGNESIUM 1.7 mg/dl (1.7-2.5); POTASSIUM 4.2 mmol/L (3.5-5.1); SODIUM 141 mmol/L (135-144); TOTAL PROTEIN 6.6 g/dl (6.1-8.1)
[2018-07-27] MEDS: PANTOPRAZOLE (EC) 40 MG TAB PO (07:36)
[2018-07-27] MEDS: INSULIN ASPART [NOVOLOG] 3 ML PEN SC ×3 (08:00→17:19)
[2018-07-27] MEDS: LACTULOSE 30ML CUP PO ×2 (08:49→12:12)
[2018-07-27] MEDS: APIXABAN 5 MG TABLET PO (08:49)
[2018-07-27] MEDS: METHENAMINE 1 GM TAB PO (08:49)
[2018-07-27] MEDS: CHOLECALCIFEROL 1,000 UNIT TAB PO (08:49)
[2018-07-27] MEDS: NEUTRA-PHOS 250 MG PACKET PO (08:49)
[2018-07-27] MEDS: ASPIRIN 81 MG TAB PO (08:50)
[2018-07-27] MEDS: NEBIVOLOL 5 MG TAB PO (08:51)
[2018-07-27] MEDS: NYSTATIN 30 GM POWDER BTL TOP (08:51)
[2018-07-27] MEDS: SPIRONOLACTONE 25 MG TAB PO (08:51)
[2018-07-27] MEDS: ERTAPENEM SODIUM 1 GM in SOD CHLORIDE 0.9% 100 ML IVPB (15:53)
== END 2018-07-27 18:36 | DRG 291 ==
LOC: E/R 20:25 → 6WM 07-11 20:35
DX: I11.0 Hypertensive heart disease with heart failure (principal); J96.00 Acute respiratory failure, unspecified whether with hypoxia or hypercapnia; G92 Toxic encephalopathy; N39.0 Urinary tract infection, site not specified; E87.1 Hypo-osmolality and hyponatremia; N17.9 Acute kidney failure, unspecified; I50.41 Acute combined systolic (congestive) and diastolic (congestive) heart failure; E11.9 Type 2 diabetes mellitus without complications; E66.01 Morbid (severe) obesity due to excess calories; G62.9 Polyneuropathy, unspecified; I87.2 Venous insufficiency (chronic) (peripheral); M21.962 Unspecified acquired deformity of left lower leg; Z68.34 Body mass index [BMI] 34.0-34.9, adult; E78.5 Hyperlipidemia, unspecified; D64.9 Anemia, unspecified; I48.91 Unspecified atrial fibrillation; R53.83 Other fatigue
CPT/HCPCS: 36600; 70450; 70551; 71045; 80048; 80053; 80162; 81001; 81003; 82043; 82550; 82553; 82803; 82962; 83036; 83690; 83735; 83880; 84100; 84155; 84300; 84439; 84443; 84484; 85025; 87086; 93005; 93306; 93970; 94640; 94664; 95819; 97163; 99285-25